=== PATIENT | female | born 1950 | race Caucasian/White ===

== ENCOUNTER 2019-10-28 15:07 | Outpatient (CLI) | payer MEDICARE, SELFPAY ==
--- NOTE | ~2019-10-28 | US_ITS ---
EXAMINATION: US venous doppler [facility] EXAM DATE: 10/28/2019 15:46 INDICATION: Left leg swelling. TECHNIQUE: Multiple grayscale, color flow and Doppler images of the left lower extremity deep venous system were obtained and reviewed. There is no prior study for comparison. FINDINGS: The left common femoral, femoral and profunda veins demonstrate normal color flow, respirat ory variation, augmentation and compressibility. Compressibility, color flow confirmed within the le ft popliteal, posterior tibial, peroneal, and greater saphenous veins. IMPRESSION: 1. No left lower extremity deep venous thrombosis. Reviewed, dictated and finalized at location A.
== END 2019-10-28 15:08 | disposition home or self-care (01) ==
PROVIDERS: PCP Family Medicine; Visit Provider Physician Assistant
DX: R60.9 Edema, unspecified (principal)
CPT/HCPCS: 93971

== ENCOUNTER 2020-09-11 09:39 | Outpatient (CLI) | payer MEDICARE, SELFPAY ==
--- NOTE | ~2020-09-11 | XR_ITS ---
XR hip RT min 2V DATE: 09/11/2020 10:39 INDICATION: Right hip pain TECHNIQUE: AP, lateral and crosstable lateral views of right hip COMPARISON: None FINDINGS: There is osteopenia. Normal alignment at the pubic symphysis and right sacroiliac joint. There is prominent right hip joint space narrowing and prominent spurring of the right femoral head c onsistent with prominent right hip osteoarthritis. No fracture, dislocation, avascular necrosis or bone destruction is detected. IMPRESSION: Moderately severe right hip osteoarthritis Reviewed, dictated and finalized at location A.
--- NOTE | ~2020-09-11 | XR_ITS ---
XR lumbar spine min 4V DATE: 09/11/2020 10:38 INDICATION: Back pain radiating to right lower extremity TECHNIQUE: AP, bilateral oblique, lateral and coned lateral lumbosacral views COMPARISON: 11/12/2016 lumbar spine 07/02/2018 MR lumbar spine FINDINGS: Diffuse osteopenia. There is levoscoliosis of the thoracolumbar spine, with compensatory dextroscoliosis of the lower lum bar spine. There is moderately severe degenerative disc disease at L1-2, L2-3 and L3-4 and severe degenerative d isc disease at L4-5 and L5-S1. There is minimal grade 1 anterolisthesis at L3-4 associated with degenerative changes noted in the mi d and lower lumbar/lumbosacral area. No fracture or bone destruction is evident. The included lower thoracic and lumbar pedicles are intac t. No spondylolysis is evident. The sacroiliac joints are intact. There is abdominal aortic and iliac artery calcification, without apparent aneurysm. IMPRESSION: Moderately severe to severe degenerative disc disease of the lumbar spine Reviewed, dictated and finalized at location A.
[2020-09-11 10:17] LABS: Basophils Percent Auto 0.5 % (0.2-1.2); Eosinophils Absolute Auto 0.2 K/mm3 (0-0.3); Eosinophils Percent Auto 2.4 % (0-4.4); Hematocrit 42.4 % (37.0-47.0); Hemoglobin 13.1 g/dL (12.0-15.0); Immature Granulocyte Absolute 0.03 K/mm3 (0.00-0.031); Immature Granulocyte Percent A 0.4 % (0-0.5); Lymphocytes Absolute Auto 1.34 K/mm3 (0.9-3.2); Lymphocytes Percent Auto 15.9 % (18.3-44.2); Mean Corpuscular HGB Conc 30.9 g/dl (32-36); Mean Corpuscular Hemoglobin 26.7 pg (26-34); Mean Corpuscular Volume 86.4 fl (80-100); Mean Platelet Volume 9.7 fl (7.4-10.4); Monocytes Absolute Auto 0.6 K/mm3 (0.1-0.6); Monocytes Percent Auto 7.2 % (2.6-8.5); Neutrophils Absolute Auto 6.2 K/mm3 (1.3-6.7); Neutrophils Percent Auto 73.6 % (45.5-73.1); Platelet Count Result 176 k/mm3 (150-375); Red Blood Count 4.91 M/mm3 (4.2-5.4); Red Cell Distribution Width 14.3 % (11.5-14.5); White Blood Count 8.4 K/mm3 (4.5-10.0)
[2020-09-11 10:29] LABS: Alanine Aminotransferase 19 U/L (4-35); Albumin Level 4.2 g/dL (3.5-5.1); Alkaline Phosphatase 71 U/L (38-126); Anion Gap 8 mmol/L (8-16); Aspartate Amino Transferase 23 U/L (14-36); Bilirubin,Total 0.2 mg/dL (0.2-1.3); Blood Urea Nitrogen 15 mg/dL (7-17); Calcium 9.8 mg/dL (8.4-10.2); Carbon Dioxide 28 mmol/L (22-30); Chloride 108 mmol/L (98-107); Cholesterol 173 mg/dL (0-200); Estimated Glomerular Filt Rate > 60; Glucose 103 mg/dL (65-105); HDL Direct 40 mg/dL; Potassium 4.2 mmol/L (3.4-5.0); Sodium 144 mmol/L (137-145); Triglycerides 128 mg/dL (<150)
[2020-09-11 10:41] LABS: LDL Cholesterol Direct 87 mg/dL
[2020-09-11 11:39] LABS: Hepatitis C Virus Antibody Negative (Negative)
== END 2020-09-11 09:40 | disposition home or self-care (01) ==
PROVIDERS: PCP Family Medicine; Referring Provider Physician Assistant; Visit Provider Family Medicine
DX: M54.16 Radiculopathy, lumbar region (principal); E78.5 Hyperlipidemia, unspecified; E66.9 Obesity, unspecified; E56.9 Vitamin deficiency, unspecified; Z11.59 Encounter for screening for other viral diseases; M16.11 Unilateral primary osteoarthritis, right hip; M51.36 Other intervertebral disc degeneration, lumbar region
CPT/HCPCS: 36415; 72110; 73502; 80053; 80061; 85025; 86803

== ENCOUNTER → 2021-08-15 14:31 | Outpatient (CLI) | payer MEDICARE, SELFPAY ==
--- NOTE | ~2021-08-15 | MR_ITS ---
EXAMINATION: MR hip RT wo con DATE: 08/15/2021 15:35 INDICATION: Right hip pain TECHNIQUE: Magnetic resonance imaging (MRI) of the right hip was performed without intravenous contr ast. Sequences included full-field axial PD-weighted FS FSE and T1-weighted FSE, coronal of the pelvi s with PD-weighted FS FSE, T2-weighted FSE and T1-weighted FSE, small field of view of the right hip with axial PD-weighted FS FSE, sagittal PD-weighted FS FSE, coronal PD-weighted FS FSE and coronal T2 weighted FSE. Additional radial T1-weighted FGR oriented orthogonal to the acetabular rim were obt ained for evaluation of the labrum. COMPARISON: Right hip radiographs dated 09/11/2020 FINDINGS: Bones/labrum/cartilage: Alignment is normal. No fracture, avascular necrosis or pathologic marrow replacing process. Moderat e to severe right hip osteoarthritis with axial predominant nonuniform joint space narrowing with the re is full/near full-thickness cartilage loss with subchondral cystic changes at the central aspect o f the acetabulum and along the superior to the superomedial aspect of the right femoral head. There i s diffuse degenerative tearing of the right acetabular labrum. Moderate osteoarthritis at the left hi p likely also with degenerative tearing of the left acetabular labrum although the latter is not diag nostically evaluated on the larger field of view images. Prominent marginal osteophytes about the perla ateral femoral heads. Bone island at the left posterior iliac spine. Mild lumbar dextrocurvature with severe spondylosis. Fluid: Asymmetric small left hip joint effusion. No bursitis or other abnormal fluid collections. Soft tissues: Diffuse mild fatty atrophy of the musculature of the pelvis and proximal thighs. No asymmetric muscle atrophy or abnormal muscle signal. The iliopsoas, gluteal and proximal hamstring tendons are normal. Small nabothian cyst at the cervix. Limited evaluation of visceral organs of the pelvis is otherwise unremarkable. No pathologically enlarged pelvic/inguinal lymphadenopathy. IMPRESSION: 1. Moderate to severe right hip osteoarthritis with diffuse labral degeneration. 2. Moderate left hip osteoarthritis with small left hip joint effusion and likely also with labral de generation but which is not diagnostically evaluated on the larger field of view images. 3. Mild lumbar dextrocurvature with severe spondylosis. Reviewed, dictated and finalized at location B. IMPRESSION: 1. Moderate to severe right hip osteoarthritis with diffuse labral degeneration . 2. Moderate left hip osteoarthritis with small left hip joint effusion and like ly also with labral degeneration but which is not diagnostically evaluated on t he larger field of view images. 3. Mild lumbar dextrocurvature with severe spondylosis.
== END ==
PROVIDERS: PCP Family Medicine; Visit Provider Family Medicine
DX: M47.816 Spondylosis without myelopathy or radiculopathy, lumbar region (principal); M16.12 Unilateral primary osteoarthritis, left hip; M25.452 Effusion, left hip; M16.11 Unilateral primary osteoarthritis, right hip
CPT/HCPCS: 73721

== ENCOUNTER → 2021-09-20 13:02 | Outpatient (CLI) | payer MEDICARE, SELFPAY ==
--- NOTE | ~2021-09-20 | MR_ITS ---
EXAMINATION: MR lumbar spine wo con DATE: 09/20/2021 13:32 INDICATION: Lumbago and radiculopathy TECHNIQUE: Magnetic resonance imaging (MRI) of the lumbar spine was performed without intravenous con trast. Sequences included sagittal T2-weighted FSE, sagittal T2-weighted FS FSE, sagittal T1-weighted FSE, and axial T2-weighted FSE. COMPARISON: None FINDINGS: 15 degree lumbar dextroscoliosis. Sagittal alignment is normal. Schmorl's nodes along multiple endpla sohan in the lumbar and lower thoracic spine. Minimal left-sided vertebral body height loss at L3 and L 4 resulting from degenerative remodeling of the endplates with mild to severe left-sided predominant disc height loss at L3-L4 and moderate to severe left-sided predominant disc height loss at L4-L5. Mo derate to severe right-sided predominant disc height loss at L5-S1. Mild to moderate right-sided pred ominant disc height loss at L1-L2. Mild disc height loss at T10-T11 and T11-T12. Minimal fibrovascula r degenerative endplate changes at a few levels. T1 hyperintense hemangiomas at T12 and L4. Small scl erotic bone island with absent signal at L5. Marrow signal is otherwise normal. The conus medullaris terminates at L2. There is normal signal in the caudal spinal cord. Paravertebral soft tissues are un remarkable. The following disc levels are specifically discussed: T12-L1: The disc does not extend beyond the endplate margin. There is mild left and moderate right fa cet joint osteoarthritis. There is no neural foraminal stenosis. There is no central canal stenosis. L1-L2: Disc is bulging. There is mild right and moderate left facet joint osteoarthritis. There is mo derate left and mild to moderate right neural foraminal stenosis. There is mild central canal stenosi s. L2-L3: Disc is bulging. There is moderate bilateral facet joint osteoarthritis. There is moderate perla ateral neural foraminal stenosis. There is mild central canal stenosis. L3-L4: Disc is bulging. There is hypertrophy of the ligamentum flavum. There is moderate right and se mariano left facet joint osteoarthritis. There is moderate bilateral neural foraminal stenosis. There is mild central canal stenosis. L4-L5: Disc is bulging. There is mild right and severe left facet joint osteoarthritis. There is mild right and moderate left neural foraminal stenosis. There is mild central canal stenosis. L5-S1: Disc is bulging. There is hypertrophy of the ligamentum flavum. There is moderate left and se mariano right facet joint osteoarthritis. There is mild to moderate left and moderate right neural hermilo inal stenosis. There is mild central canal stenosis. IMPRESSION: 1. Lumbar dextroscoliosis with progression of severe lumbar spondylosis. Reviewed, dictated and finalized at location A.
== END ==
PROVIDERS: PCP Family Medicine; Visit Provider Nurse Practitioner Family
DX: M47.26 Other spondylosis with radiculopathy, lumbar region (principal)
CPT/HCPCS: 72148

== ENCOUNTER → 2021-10-01 11:46 | Outpatient (CLI) | payer MEDICARE, SELFPAY ==
--- NOTE | ~2021-10-01 | CT_ITS ---
EXAMINATION: CT lung screening DATE: 10/01/2021 12:01 INDICATION: Personal history of tobacco dependence. Lung cancer screening. TECHNIQUE: Computed tomography (CT) of the chest was performed without intravenous contrast. The dose -length product was 388.96 mGy-cm. Automated exposure control and iterative reconstruction technique were employed. COMPARISON: CT dated 10/29/2018 FINDINGS: There is enlargement of some solid left upper lobe nodule with 7 mm solid component and 13 mm complete diameter. This compares with 7 mm on prior examination. Heart size normal. Small hiatal h ernia. No significant pleural or pericardial effusion. There is atherosclerosis of the aorta and kierra nary arteries. Small hiatal hernia. No significant pleural or pericardial effusion. There is enlarged precarinal lymph node measuring 1.4 cm. The upper abdomen is unremarkable. There are patchy groundgl ass opacities of the lower lobes. There is a 4 mm left lower lobe nodule, image 101. There is a 3 mm right upper lobe nodule adjacent to the fissure, image 55, new since prior examination. There is a 3- 4 mm nodule in the left upper lobe/lingula, image 70. No focal consolidation. No endobronchial lesion s. IMPRESSION: 1. Lung Rads category 4A: Recommend follow-up low dose CT chest in 3 months or PET/CT scan. Reviewed, dictated and finalized at location A.
== END ==
PROVIDERS: PCP Family Medicine; Visit Provider Nurse Practitioner Family
DX: Z12.2 Encounter for screening for malignant neoplasm of respiratory organs (principal); Z87.891 Personal history of nicotine dependence; R91.8 Other nonspecific abnormal finding of lung field
CPT/HCPCS: 71271

== ENCOUNTER → 2022-01-02 11:53 | Outpatient (CLI) | payer MEDICARE, SELFPAY ==
--- NOTE | ~2022-01-02 | CT_ITS ---
EXAMINATION: CT diagnostic chest wo con DATE: 01/02/2022 12:05 INDICATION: Lung nodule TECHNIQUE: Computed tomography (CT) of the chest was performed without intravenous contrast. The dose -length product (DLP) was 404.79 mGy-cm. Automated exposure control and iterative reconstruction tech [employer] were employed. COMPARISON: 10/01/2021 FINDINGS: There is mild emphysema. There is an approximately 1.3 x 0.6 cm nodule in the left upper lo be on image 34 which is not significantly changed since the comparison examination. According to Lung -RADS guidelines, this is given a category 2 assessment. There is a stable 3 mm nodule of the right u pper lobe. There is a stable 3 mm nodule of the left lower lobe. There is mild atelectasis. No pleura l effusion or pneumothorax. No pathologically enlarged thoracic lymph nodes are identified. The heart size is normal. Calcified coronary artery atherosclerosis is noted. There is lipomatous hypertrophy of the interatrial septum. There is cortical scarring of the right kidney. There is moderate lumbar s pondylosis. There is a small sliding hiatal hernia. IMPRESSION: 1. Lung-RADS category 2: Benign appearance or behavior. Continue annual screening with noncontrast lo w-dose chest CT in 12 months. Reviewed, dictated and finalized at location A. IMPRESSION: 1. Lung-RADS category 2: Benign appearance or behavior. Continue annual screeni ng with noncontrast low-dose chest CT in 12 months.
== END ==
PROVIDERS: PCP Family Medicine; Visit Provider Nurse Practitioner Family
DX: R91.1 Solitary pulmonary nodule (principal); I25.10 Atherosclerotic heart disease of native coronary artery without angina pectoris; M47.816 Spondylosis without myelopathy or radiculopathy, lumbar region; K44.9 Diaphragmatic hernia without obstruction or gangrene
CPT/HCPCS: 71250

== ENCOUNTER 2022-07-08 12:31 | Outpatient (CLI) | payer MEDICARE, SELFPAY ==
--- NOTE | ~2022-07-08 | CT_ITS ---
CT Scan of the Chest without Contrast: Clinical Indication: Lung nodule Technique: Contiguous sections were acquired throughout the chest without intravenous contrast. Dose reduction technique was used on this scan by utilizing automated exposure control and iterative recon struction technique. The dose-length product (DLP) was 422.58 mGy-cm. COMPARISON: 01/02/2022, 10/29/2018 Findings: There is no evidence of any significant mediastinal, hilar or axillary lymphadenopathy. The mediastin al soft tissues appear normal. There is no evidence of pleural or pericardial effusion. Focal groundglass opacity right lung apex is similar to prior exam (axial image 24). Subcentimeter finney bpleural nodules at the anterior right lung base probably are similar to prior exam. Increasing nodul e at the left lung apex, now measuring up to 1 cm in maximum diameter (axial image 36). Stable subple ural nodule at the lingula. Images through the upper abdomen reveal no abnormalities. Impression: 1 cm left apical pulmonary nodule slowly increasing over time, suspicious for low-grade neoplasm. 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 Additional small pulmonary nodules are stable from prior exams. Reviewed, dictated and finalized at location . Impression: 1 cm left apical pulmonary nodule slowly increasing over time, suspicious for l ow-grade neoplasm. Consider resection or attempted tissue sampling. Additional small pulmonary nodules are stable from prior exams.
== END 2022-07-08 12:32 | disposition home or self-care (01) ==
PROVIDERS: PCP Family Medicine; Visit Provider Nurse Practitioner Family
DX: R91.1 Solitary pulmonary nodule (principal)
CPT/HCPCS: 71250

== ENCOUNTER 2022-07-23 08:57 | Outpatient (CLI) | payer MEDICARE, SELFPAY ==
[2022-07-15 11:51] VITALS: BMI 43.7
--- NOTE | 2022-07-15 11:52 | PC.NURSE ---
Pre Radiology instructions Report to the outpatient [facility] on date _07/23/22____ at time __9:00AM for procedure Time: _11:00AM___ YOU MAY BE MONITORED AT HOSPITAL FOR UP TO 4 HOURS AFTER YOUR PROCEDURE. A visitor will be allowed to accompany the patient into the hospital. You and your visitor will be asked to self-screen and do not enter if you have any COVID symptoms. A mask is OPTIONAL within the hospital. Patients are to have no food or drink 6 hours prior to procedure time Driving will be restricted after the procedure, you must have a person to drive you home. Labs will be drawn in preop area and once reviewed, you will be taken to radiology area for procedure. When the procedure is completed, you will be taken to outpatient where you will be monitored for several hours. You may have one visitor in this area. Other than holding anti-coagulants, patient may take other medication(s) as scheduled. Prior to your appointment date patients are instructed to hold anti-coagulants after discussing with ordering provider to stop. If unable to discontinue anti-coagulants please notify radiologist. ? No aspirin or warfarin (Coumadin) for 7 days prior to the procedure. ? No clopidogrel (Plavix), ticagrelor (Brilinta), prasugrel (Effient) or dabigatran (Pradaxa) for 5 days prior to the procedure. ? No rivaroxaban (Xarelto), apixaban (Eliquis), dipyridamole (Aggrenox or Persantine) or cilostazol (Pletal) for 2 days prior to the procedure. Medications to discontinue per physician: __NONE Date to take last dose: Please leave all valuables, including medications, at home the day of procedure. The hospital will not accept responsibility for valuables. Wear comfortable, loose fitting clothing.? Follow any additional instructions given to you from ordering provider. Telephone instructions given to __PATIENT and asked if any additional questions and then verbalized understanding. Patient advised to call scheduling provider office or registration scheduling [phone] if any additional questions.
[2022-07-23] VITALS (9 sets, daily range): BP systolic 109–150; BP diastolic 55–72; PULSE 50–70; RESP 14–16; TEMP 37.3; O2SAT 95–100
--- NOTE | ~2022-07-23 | XR_ITS ---
EXAMINATION: XR chest 1V DATE: 07/23/2022 11:46 INDICATION: Left lung nodule status post previous biopsy. TECHNIQUE: A single frontal view of the chest was obtained. COMPARISON: Chest CT 07/08/2022 FINDINGS: There is a mass in left lung upper lobe. No pleural effusion. There is a small left apical pneumothorax. The heart size is normal. IMPRESSION: 1. Mass in left lung upper lobe, consistent with postbiopsy hemorrhage. 2. Small left apical pneumothorax. Reviewed, dictated and finalized at location A.
--- NOTE | ~2022-07-23 | XR_ITS ---
EXAMINATION: XR chest 1V portable DATE: 07/23/2022 12:47 INDICATION: Left lung nodule status post percutaneous biopsy. TECHNIQUE: A single frontal view of the chest was obtained. COMPARISON: Chest single view at 11:45 AM FINDINGS: There is a nodule in left upper lobe. No pleural effusion or pneumothorax. The heart size i s normal. IMPRESSION: 1. Nodule in left lung upper lobe, consistent with postbiopsy hemorrhage. Reviewed, dictated and finalized at location A.
--- NOTE | ~2022-07-23 | XR_ITS ---
EXAMINATION: XR chest 1V portable DATE: 07/23/2022 15:53 INDICATION: Left lung nodule status post percutaneous biopsy. TECHNIQUE: A single frontal view of the chest was obtained on 2 radiographs. COMPARISON: Chest single view at 12:38 PM FINDINGS: There is a nodule in left upper lobe. No pleural effusion or pneumothorax. The heart size i s normal. IMPRESSION: 1. Nodule in left upper lobe, consistent with postbiopsy hemorrhage. Reviewed, dictated and finalized at location A.
--- NOTE | ~2022-07-23 | CT_ITS ---
EXAMINATION: CT biopsy lung w/imaging DATE: 07/23/2022 11:47 INDICATION: Left lung nodule. TECHNIQUE: The procedure including the risks, benefits, and alternatives and possibility of chest tub e placement were discussed with the patient. Risks discussed included infection, hemorrhage, approxim ately 1/3 risk of pneumothorax, approximately 1/10 risk of pneumothorax severe enough to warrant ches t tube placement, and rarely . The patient understood the risks and agreed to proceed. The patie nt was placed supine. The skin overlying the left chest was prepped and draped in sterile fashion. Anesthetic was administered with 1% lidocaine subcutaneously. A 19 gauge outer needle was advanced u nder CT guidance to the lesion of interest. A 20 gauge core biopsy needle was then used to obtain one core biopsy specimen. The needle was removed and the entry site was cleaned and dressed. The mA was adjusted according to patient size. Iterative reconstruction technique was employed. The dose-length product was 201.35 mGy-cm. The patient experienced hemoptysis and was placed in the left lateral decu bitus position. FINDINGS: CT images demonstrate the outer needle tip adjacent to a 13 mm nodule in left upper lobe. IMPRESSION: 1. CT-guided core needle biopsy of a 13 mm nodule in left lung upper lobe. Reviewed, dictated and finalized at location A.
[2022-07-23 09:42] LABS: Mean Platelet Volume 9.1 fl (7.4-10.4); Platelet Count Result 164 k/mm3 (150-375)
[2022-07-23 09:55] LABS: Prothrombin Time 13.3 Seconds (11.1-14.7)
--- NOTE | 2022-07-23 14:53 | SUR.PHASEII ---
[id number] dr garcia called and asked for updated on patient, doing well, last chest xray is ok, patient ok for discharge
== END 2022-07-23 14:54 | disposition home or self-care (01) ==
PROVIDERS: PCP Family Medicine; Referring Provider Nurse Practitioner Family; Visit Provider Radiology Diagnostic Radiology
PROC: BB24ZZZ Computerized Tomography (CT Scan) of Bilateral Lungs (ICD-10-PCS; CPT 32408; principal; 2022-07-23 11:00)
DX: R91.1 Solitary pulmonary nodule (principal)
CPT/HCPCS: 32408; 36415; 71045; 85049; 85610; 88305

== ENCOUNTER 2022-11-05 12:31 | Outpatient (CLI) | payer MEDICARE, SELFPAY ==
--- NOTE | ~2022-11-05 | CT_ITS ---
EXAMINATION: CT diagnostic chest wo con DATE: 11/05/2022 13:05 INDICATION: Lung nodule TECHNIQUE: Computed tomography (CT) of the chest was performed without intravenous contrast. The dose -length product (DLP) was 420.53 mGy-cm. Automated exposure control and iterative reconstruction tech [employer] were employed. COMPARISON: 10/01/2021, 01/02/2022, 07/08/2022, 07/23/2022 FINDINGS: There is an approximately 1.4 x 0.7 cm nodule of the left upper lobe on image 36 without si gnificant change since comparison examinations. There are stable 3 mm nodules of the right upper lobe and left lower lobe. No new pulmonary nodules are identified. No pathologically enlarged thoracic ly mph nodes are identified. The heart size is normal. No pleural effusion or pneumothorax. There is aliya cified coronary artery atherosclerosis. Mild dependent atelectasis is noted. Subendocardial fat depos ition in the left ventricular apex and intraventricular septum is consistent with prior myocardial in farction. Again noted is lipomatous hypertrophy of the interatrial septum. There is moderate thoracic spondylosis. IMPRESSION: 1. Stable lung nodules. Annual lung cancer screening is recommended. Reviewed, dictated and finalized at location L.
== END 2022-11-05 12:32 | disposition home or self-care (01) ==
PROVIDERS: PCP Family Medicine; Visit Provider Nurse Practitioner Family
DX: R91.1 Solitary pulmonary nodule (principal); R91.8 Other nonspecific abnormal finding of lung field
CPT/HCPCS: 71250

== ENCOUNTER 2023-02-12 10:00 | Outpatient (RCR) | payer MEDICARE, SELFPAY ==
--- NOTE | 2023-01-09 11:23 | PTOPEVAL1 ---
Assessment and note entered by Rajiv Rios Evaluation Information Assessment Status Evaluation Diagnosis lumbar radiculopathy, low back pain Onset 12/16/22 Subjective Information Pt. reports she has experienced low back pain for years. She reports that her pain has gotten progressively worse over the past year. She describes pain in the middle of the low back and into the hips around the described greater trochanter. She states that pain is increased with being in one position for a long period of time. She states that she can only stand for about 15 minutes before having to sit. Pt. 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 She states that she has also noticed a decline in her balance and was been using a rolling walker around the home. She is by herself at home. She states that she avoid yard work due to pain and balance issues. She report no falls in the past year, but recalls numerous loses of balance. She reports that her goal is to reduce her back pain and improve her balance. Reported Pain Level Pain Score 2: Self Report Assessment PT Clinical Summary Pt. is a 72 year old female who enters the clinic with low back pain. Pt. presents with moderate fall risk, impaired gait, impaired l.e. strength, impaired postural awareness and pain on this date. Continued skilled PT is indicated in order to address these areas to allow the pt. to be able to complete all IADL's with improved comfort and efficiency. Plan of Care Interventions Electrical Stimulation,Gait Training,Hot Pack/Cold Pack,Manual Therapy,Mechanical Traction,Neuro Re- education,Patient/Caregiver Educati,Therapeutic Activities,Therapeutic Exercise PT Services Indicated Yes Treatment Frequency and 2x/week x 10 visits Duration These treatments will address the objective and functional deficits as defined above. The patient will be advanced safely and appropriately in order for the patient to progress towards his/her prior level of function. Additional exercises will be introduced and as well as a comprehensive home exercise program upon discharge, if needed, ?to ensure carryover of functional gains achieved in the clinic. This treatment plan has been reviewed and agreement upon by the patient.
--- NOTE | 2023-01-09 11:23 | OPREHPOC ---
Outpatient Therapy Plan of Care This is a Multidisciplinary Plan of Care that may contain components documented by all disciplines (PT, OT, and ST.) PT Problem 1 PT Problem #1 Knowledge Deficit PT Goal 1 Goal Independent with a HEP focusing on core stability and l.e. strength Target Visit 2 PT Problem 2 PT Problem #2 Impaired Balance PT Goal 1 Goal Improve tinetti score to 24 or greater indicating low fall risk. Target Visit 10 PT Problem 3 PT Problem #3 Impaired Functional Mobil PT Goal 1 Goal Pt. will be able to safely reach to the floor to lift 10# object with proper mechanics x 5 reps PT Goal 2 Goal Pt. will demonstrate 20% improvement in her Modified Oswestry score indicating improved function. Target Visit 10 PT Problem 5 PT Problem #5 Pain PT Goal 1 Goal Pt. will report reduction in pain levels to 4/10 with long periods of standing. Target Visit 10
--- NOTE | 2023-02-12 10:48 | OPREHPOC ---
Outpatient Therapy Plan of Care This is a Multidisciplinary Plan of Care that may contain components documented by all disciplines (PT, OT, and ST.) PT Problem 1 PT Problem #1 Knowledge Deficit PT Goal 1 Goal Independent with a HEP focusing on core stability and l.e. strength Target Visit 2 Progress Met Comment 02-12-23 progress met goal- continue to progress education for aquatic exercises PT Problem 2 PT Problem #2 Impaired Balance PT Goal 1 Goal Improve tinetti score to 24 or greater indicating low fall risk. Target Visit 10 Progress Met Comment 02-12-23 progress met goal discontinue intervention PT Problem 3 PT Problem #3 Impaired Functional Mobility PT Goal 1 Goal Pt. will be able to safely reach to the floor to lift 10# object with proper mechanics x 5 reps Progress Met Comment 02-12-23 progress met goal NEW GOAL: 1* pt perform 45 minutes of aquatic exercises, to increase strength of trunk and hips PT Goal 2 Goal Pt. will demonstrate 20% improvement in her Modified Oswestry score indicating improved function. Target Visit 10 Progress Not Met Comment 02-12-23 progress goal not met, improved to 42% discontinue intervention PT Problem 5 PT Problem #5 Pain PT Goal 1 Goal Pt. will report reduction in pain levels to 4/10 with long periods of standing. Target Visit 10 Progress Not Met Comment 02-12-23 progress not met, continue towards goal
--- NOTE | 2023-02-12 10:48 | PTOPPROG ---
Assessment and note entered by Jocelyn Soto, PT Evaluation Information Assessment Status Progress Diagnosis lumbar radiculopathy, low back pain Onset 12/16/22 Subjective Information feel like doing better, but improvements will be care home and take time; was hard to find some exercises for home that do not cause more pain in hip and back; wants to try aquatic exercises, her friend likes them and she wants to go with her to [facility] to do exercises for more weight loss; has also been going to the chiropractor for back adjustments ; thinks that may be helping, but after last traction session and chiropractor, had more pain PAIN: range in the past week: 2-7/10 decrease pain with sitting, resting increase pain raking leaves, twisting reported tolerance with standing/walking 25 min 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 Compared to the initial evaluation: pain was 1-7/10 and now 2-7/10; reported standing/walking tolerance has increased from 15 to 25 minutes; Oswestry self assessment functional score from 50% to 42% limitation in activity level; Tinetti balance score from 24 to 26/28; education for home exercises, posture, pain management and body mechanics; The goals were partially met. Continue PT for aquatic therapy--education to pt for aquatic exercises for fitness/weight loss and decrease stress to spine, with the buoyancy effects of the water. Plan of Care Interventions Aquatic Therapy,Patient Education PT Services Indicated Yes Treatment Frequency and 1-2x/wk for 4 weeks= total of 4 visits Duration These treatments will address the objective and functional deficits as defined above. The patient will be advanced safely and appropriately in order for the patient to progress towards his/her prior level of function. Additional exercises will be introduced and as well as a comprehensive home exercise program upon discharge, if needed, ?to ensure carryover of functional gains achieved in the clinic. This treatment plan has been reviewed and agreement upon by the patient.
--- NOTE | 2023-02-24 15:30 | PCPTNOTE ---
Pt cancelled all remaining appointments becuase she had too much going on right now.
--- NOTE | 2023-02-27 10:02 | PTOPDC ---
Assessment and note entered by Jocelyn Soto, PT Discharge Information Assessment PT Clinical Summary PHYSICAL THERAPY DISCHARGE Rosa has received 10 PT sessions, from Jan 09 to Feb 12. She then called and canceled all of her remaining appointments, due to too much to to at this time. The goals were not addressed. Discharge PT per pt requrest. Plan of Care PT Services Indicated No
== END 2023-02-27 10:17 | disposition home or self-care (01) ==
LOC: ANHPT 10:00
PROVIDERS: PCP Family Medicine; Visit Provider Physician Assistant
DX: M54.16 Radiculopathy, lumbar region (principal)
CPT/HCPCS: 97012; 97014; 97110; 97140; 97161; 97530; G0283

== ENCOUNTER → 2023-05-14 13:07 | Outpatient (CLI) | payer MEDICARE, SELFPAY ==
--- NOTE | ~2023-05-14 | DEXA_ITS ---
Bone Density Report Name: KAREN MARSHALL Age: 72 Sex: Female Ethnicity: White Date of : 1950 Indication: postmenopausal; screening for osteoporosis; height loss; Referring Provider: RENITA MIR Study: Bone densitometry was performed. Exam Date: May 14, 2023 Accession number: [id number] Bone Density: Region BMD T-score Z-score Classification AP Spine (L1-L4) 1.157 1.0 3.3 Normal Femoral Neck (Left) 0.691 -1.4 0.6 Osteopenia Total Hip (Left) 0.899 -0.4 1.4 Normal Femoral Neck (Right) 0.665 -1.7 0.4 Osteopenia Total Hip (Right) 0.836 -0.9 0.8 Normal Total Hip Mean 0.868 -0.7 1.1 Normal World Health Organization criteria for BMD impression classify patients as: Normal (T-score at or above -1.0), Osteopenia (T-score between -1.0 and -2.5), or Osteoporosis (T-score at or below -2.5). 10-year Fracture Risk(1): Major Osteoporotic Fracture 9.7% Hip Fracture 1.7% Reported Risk Factors: [place] (), Neck BMD=0.665, BMI=43.4 (1) FRAX(R) Version 3.08. Fracture probability calculated for an untreated patient. Fracture probability may be lower if the patient has received treatment. Clinical Information Provided by Patient: Has used the following medications: Vitamin D, Calcium Patient maximum height was 67.5 Menopause Age: 47 No regular weight bearing exercise Does not regularly consume dairy products Drinks caffeinated beverages Onset of menses at age 13 Number of children 1 Impression: The patient has low bone mass, based on the Right Femoral Neck T-score. The patient has an estimated ten-year risk of hip fracture of 1.7% and an estimated ten-year risk of major fracture of 9.7%, based on the WHO FRAX algorithm. Discussion: BONE DENSITY IS LOW AT ONE OR MORE SKELETAL SITES. This patient's lowest T-score is low at one or more skeletal sites. It meets the World Health Organization's (WHO) criteria for ?low bone mass? (T-score between -1.0 and -2.5). The patient's 10-year risk of fracture as calculated by FRAX is less than the threshold where pharmacological therapy is recommended by the National Osteoporosis Foundation (NOF). However, all treatment decisions require clinical judgment and consideration of individual patient factors, including patient preferences, comorbidities, previous drug use, risk factors not captured in the FRAX model (e.g., frailty, falls, vitamin D deficiency, increased bone turnover, interval significant decline in bone density) and possible under or overestimation of fracture risk by FRAX. The patient should follow a healthful lifestyle (good nutrition with adequate calcium and vitamin D, and appropriate weight-bearing exercise). Follow-Up: Consider repeating this study in 2 to 3 years to reassess this patient's status, or sooner if there is some new cl
== END ==
PROVIDERS: PCP Physician Assistant; Visit Provider Physician Assistant
DX: M85.89 Other specified disorders of bone density and structure, multiple sites (principal); Z78.0 Asymptomatic menopausal state
CPT/HCPCS: 77080

== ENCOUNTER 2023-11-11 09:17 | Outpatient (CLI) | payer MEDICARE, SELFPAY ==
--- NOTE | ~2023-11-11 | CT_ITS ---
EXAMINATION:CT diagnostic chest wo con DATE: 11/11/2023 09:53 INDICATION: Solitary pulmonary nodule. TECHNIQUE: Computed tomography (CT) of the chest was performed without intravenous contrast. Automate d exposure control and iterative reconstruction technique were employed. The dose-length product (DLP ) was 277.78 mGy-cm. COMPARISON: Chest CT 11/05/2022 FINDINGS: There is mild emphysema. There is mild atelectasis bilaterally. There is a 13 mm nodule in left upper lobe, stable from 11/05/2022. There is a 3 mm nodule in right upper lobe, likely benign. No pleural effusion. The heart size is normal. There are coronary artery calcifications. No pericardial effusion. There is moderate thoracic spondylosis. IMPRESSION: 1. 13 mm left upper lobe pulmonary nodule, stable from 11/05/2022, likely benign. Continue annual scre ening with noncontrast low-dose chest CT in 12 months. Reviewed, dictated and finalized at location A. IMPRESSION: 1. 13 mm left upper lobe pulmonary nodule, stable from 11/05/2022, likely benign . Continue annual screening with noncontrast low-dose chest CT in 12 months.
== END 2023-11-11 09:18 ==
LOC: MICIMG 09:17
PROVIDERS: PCP Family Medicine; Visit Provider Nurse Practitioner Family
DX: R91.1 Solitary pulmonary nodule (principal)
CPT/HCPCS: 71250

== ENCOUNTER 2023-11-11 09:19 | Outpatient (CLI) | payer MEDICARE, SELFPAY ==
--- NOTE | ~2023-11-11 | XR_ITS ---
EXAMINATION: XR hip RT 2V w AP pelvis DATE: 11/11/2023 09:35 INDICATION: Right hip pain. TECHNIQUE: An anteroposterior view of the pelvis and 2 views of right hip were obtained. COMPARISON: Right hip radiographs 09/11/2020 FINDINGS: There is lumbar dextrocurvature and severe spondylosis. No fracture. There is severe osteoa rthritis of the hips. IMPRESSION: 1. Severe osteoarthritis of the hips. Reviewed, dictated and finalized at location A.
== END 2023-11-11 09:20 ==
LOC: MICIMG 09:20
PROVIDERS: PCP Family Medicine; Visit Provider Family Medicine
DX: M25.551 Pain in right hip (principal); M16.0 Bilateral primary osteoarthritis of hip
CPT/HCPCS: 73502

== ENCOUNTER 2023-12-05 12:37 | Outpatient (CLI) | payer MEDICARE, SELFPAY ==
--- NOTE | ~2023-12-05 | MR_ITS ---
EXAMINATION: MR lumbar spine wo con DATE: 12/05/2023 13:39 INDICATION: Lumbago TECHNIQUE: Magnetic resonance imaging (MRI) of the lumbar spine was performed without intravenous con trast. Sequences included sagittal T2-weighted FSE, sagittal T2-weighted FS FSE, sagittal T1-weighted FSE, and axial T2-weighted FSE. COMPARISON: 09/20/2021 FINDINGS: 1019 degrees lumbar dextroscoliosis. Sagittal alignment is normal. Consider a few Schmorl's nodes in the lumbar and lower thoracic spine. Minimal left-sided vertebral body height loss at L3 and L4 resul ting from degenerative endplate remodeling with associated severe left-sided disc height loss at L3-L 4 and L4-L5. Minimal right-sided vertebral body height loss at L5 also secondary to degenerative endp late remodeling with severe right-sided disc height loss at L5-S1. Remaining vertebral body heights a re normal. Interval progression of mild left and now severe right-sided disc height loss at L1-L2. Mi ld disc height loss at T1 T12 and L2-L3. There are fibrovascular degenerative endplate changes associ ated with the regions of severe disc height loss. T1 hyperintense hemangiomas at T12, L4 and L5. The conus medullaris terminates at L1-L2. There is normal signal in the caudal spinal cord. Paravertebral soft tissues are unremarkable. The following disc levels are specifically discussed: T12-L1: The disc does not extend beyond the endplate margin. There is mild left and and moderate to s evere right facet joint osteoarthritis. There is no neural foraminal stenosis. There is no central ca nal stenosis. L1-L2: Disc is bulging. There is mild right and moderate left facet joint osteoarthritis. There is mo derate left and mild to moderate right neural foraminal stenosis. There is mild central canal stenosi s. L2-L3: Disc is bulging. There is moderate bilateral facet joint osteoarthritis. There is bilateral ne ural foraminal stenosis. There is mild central canal stenosis. L3-L4: Disc is bulging. There is hypertrophy of the ligamentum flavum. There is moderate right and se mariano left facet joint osteoarthritis. There is moderate bilateral neural foraminal stenosis. There is mild central canal stenosis. L4-L5: Disc is bulging. There is mild right and severe left facet joint osteoarthritis. There is mild right and moderate left neural foraminal stenosis. There is mild central canal stenosis. L5-S1: Disc is bulging. There is hypertrophy of the ligamentum flavum. There is moderate left and sev ere right facet joint osteoarthritis. There is mild left and moderate right neural foraminal stenosis . There is mild central canal stenosis. IMPRESSION: 1. Lumbar dextroscoliosis with minimal progression in severe lumbar spondylosis. Reviewed, dictated and finalized at location B. IMPRESSION: 1. Lumbar dextroscoliosis with minimal progression in severe lumbar spondylosis .
== END 2023-12-05 12:38 | disposition home or self-care (01) ==
LOC: MICIMG 12:38
PROVIDERS: PCP Family Medicine; Visit Provider Nurse Practitioner Family
DX: M41.86 Other forms of scoliosis, lumbar region (principal); M43.06 Spondylolysis, lumbar region
CPT/HCPCS: 72148

== ENCOUNTER 2024-10-21 09:09 | Outpatient (CLI) | payer MEDICARE, SELFPAY ==
--- NOTE | ~2024-10-21 | NM_ITS ---
EXAMINATION: NM eduarda stress w perfusion DATE: 10/21/2024 10:54 INDICATION: Abnormal electrocardiogram TECHNIQUE: Rest images were obtained following intravenous administration of 10 mCi Tc99m tetrofosmin (Myoview). The patient was infused intravenously with Lexiscan (Regadenoson). Then, 33 mCi Tc99m tet rofosmin (Myoview) was administered intravenously, and stress images were obtained. Data was reconstr ucted into short axis and horizontal and vertical long axis SPECT images. Gated SPECT images were als o obtained. COMPARISON: None. FINDINGS: There is no definite reversible or fixed perfusion abnormality to suggest ischemia or infar ction. There is normal left ventricular chamber size, wall motion and ejection fraction. Left ventr icular ejection fraction measures >70%. IMPRESSION: 1. Normal myocardial perfusion at rest and during stress. 2. Left ventricular ejection fraction measuring >70%. Reviewed, dictated and finalized at location A.
--- NOTE | 2024-10-21 09:13 | EST_ITS ---
Patient Info Name: Rosa Newell Age: 74 years : 1950 Gender: Female Ht: 65 in Wt: 229 lbs BSA: 2.23 m2 Exam Date: 10/21/2024 9:13 AM Patient Status: O Admit Date: 10/21/2024 Exam Type: CA stress eduarda w NM A regadenoson stress test was performed. Staff Referring Physician: Fatou Mcgee MD Attending Provider: Fatou Mcgee MD Exercise Technologist: Mally Grey Exercise Physician: Chase Tavarez DO Summary 1. 1. Negative lexiscan stress test for ischemic ST changes by ECG criteria. 2. 2. Baseline hypertension. 3. 3. Nuclear scan to follow and will be reported separately. Please correlate with it. 4. 4. Patient informed of the above results. Protocol: Lexiscan Stress ECG Details Stage: REST Duration (min): 1 min : 5 sec HR (bpm): 57 SBP (mmHg): 147 DBP (mmHg): 74 Stage: REST Duration (min): 3 min : 54 sec HR (bpm): 54 SBP (mmHg): 147 DBP (mmHg): 74 Stage: STAGE 1 Duration (min): 1 min : 0 sec HR (bpm): 87 SBP (mmHg): 157 DBP (mmHg): 80 Stage: RECOVERY Duration (min): 1 min : 0 sec HR (bpm): 89 SBP (mmHg): 224 DBP (mmHg): 81 Stage: RECOVERY Duration (min): 2 min : 0 sec HR (bpm): 83 SBP (mmHg): 224 DBP (mmHg): 81 Stage: RECOVERY Duration (min): 3 min : 0 sec HR (bpm): 77 SBP (mmHg): 224 DBP (mmHg): 81 Stage: RECOVERY Duration (min): 4 min : 0 sec HR (bpm): 79 SBP (mmHg): 194 DBP (mmHg): 80 Stage: RECOVERY Duration (min): 5 min : 0 sec HR (bpm): 76 SBP (mmHg): 155 DBP (mmHg): 85 Stage: RECOVERY Duration (min): 5 min : 8 sec HR (bpm): 77 SBP (mmHg): 155 DBP (mmHg): 85 Rest HR: 54 bpm Peak HR: 93 bpm Rest Sys BP: 147 mmHg Peak Sys BP: 224 mmHg Max Pred HR: 145 bpm % Max Pred HR: 64 % Target HR: 123 bpm Max RPP: 20,832 bpm*mmHg Termination Reason: Completed protocol Cardiac Symptoms: Shortness of breath Total Time: 1 min : 0 sec Rest Hilliard BP: 74 mmHg Peak Hilliard BP: 81 mmHg Total Dose: 0.4 mg Resting ECG Sinus bradycardia, IRBBB. Stress ECG No ST changes. Arrhythmias None. Report Signatures
--- OUTSIDE RECORDS SUMMARY | 2024-10-21 09:24 | XMS_ITS ---
Author Organization [facility] ([address]) Address [address] [place] [phone] Care Team Providers Care Blasting Coal Miner Name Role Phone Emeka Torres [phone] REASON FOR VISIT [facility], [...] 08/19/2023 Encounters Encounter Location Date Provider Diagnosis [facility] ([address]) [address] [place] [phone] 08/19/2023 Emeka Torres Morbid (severe) obesity due [...] abdomen Frequency: weekly Lot Number/Expiration: Medication Source: [facility] Adverse Reaction: None Progress Notes * Howard MARSHALLaDOB:1950 ( 74 yo F)Acc No.[id number]:08/19/2023 Weight Loss Patient: Rosa MCKAY Provider: Zaid Torres MD :1950 A ge:73 Y S ex:Female Date:08/19/2023 Address:[address] [place], [place] [id number] Subjective: * Chief Complaints: * 1 . [...] ot Number/Expiration 0 M edication Source H [facility] A dverse Reaction N one * Follow Up: 1 Week (Reason: GLP-1 Agonist Administration) * Billing Information: * Visit Code: * Procedure Codes: * Electronic signature of Alfredo Torres MD, FAAAAI on 10/21/2024 at 09:24 AM CDT Sign off status: Pending * Provider: Zaid Torres MD Date: 0 08/19/2023 Generated for Rush toledo/Mati/Tiago on: 0 10/21/2024 09:24 AM CDT
--- OUTSIDE RECORDS SUMMARY | 2024-10-21 09:24 | XMS_ITS | Patient Health Record ---
Author Organization [facility] ([address]) Address [address] [phone] Support Name Relationship Address Phone Rosa Newell Guarantor Unknown [phone] Reason For Referral No Information Problems Problem Type SNOMED Code ICD Code Onset Dates Problem Status W/U Status Risk Notes Problem Morbid obesity (disorder) (618106692) Morbid (severe) obesity due to excess calories (E66.01) Active confirmed Problem Chronic fatigue syndrome (disorder) (60212285) Chronic fatigue, unspecified (R53.82) Active confirmed Plan Of Treatment No Information
--- OUTSIDE RECORDS SUMMARY | 2024-10-21 09:24 | XMS_ITS | Encounter Summary ---
Author Organization [facility] Address [address] [place] [address] Care Team Providers Care Cloth Booker Name Role Phone Fatou Mcgee MD Primary Care Provider + Misael Wilson OT Unavailable Unavailable Benigno Hoffman MD Unavailable [phone] Encounter Details Date Type Department Care Team (Late st Contact Info) Description 10/20/2024 1:00 PM CDT Orders Only [facility] [address] [place] [address] Social History Tobacco Use Types Packs/Day Years Used Date Smoking Tobacco: Former Cigarettes Smokeless Tobacco: Never AUDIT-C Answer Date Recorded Q1: How often [...] on file 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
--- OUTSIDE RECORDS SUMMARY | 2024-10-21 09:25 | XMS_ITS ---
Author Organization [facility] ([address]) Address [address] [place] [phone] Care Team Providers Care Bonding Agent Name Role Phone Emeka Torres [phone] REASON FOR VISIT [facility], [...] 08/11/2023 Encounters Encounter Location Date Provider Diagnosis [facility] ([address]) [address] [place] [phone] 08/11/2023 Emeka Torres Morbid (severe) obesity due [...] abdomen Frequency: weekly Lot Number/Expiration: Medication Source: [employer] Adverse Reaction: None Progress Notes * Howard MARSHALLaDOB:1950 ( 74 yo F)Acc No.[id number]:08/11/2023 Weight Loss Patient: Rosa MCKAY Provider: Zaid Torres MD :1950 A ge:73 Y S ex:Female Date:08/11/2023 Address:[address] [place], [place] [phone] Subjective: * Chief Complaints: * 1 . [...] ot Number/Expiration 0 M edication Source [facility] A dverse Reaction N one * Follow Up: 1 Week (Reason: GLP-1 Agonist Administration) * Billing Information: * Visit Code: * Procedure Codes: 84641 InBody Consult. * Electronic signature of Patjimmie Torres MD, FAAAAI on 10/21/2024 at 09:24 AM CDT Sign off status: Pending * Provider: Zaid Torres MD Date: 0 08/11/2023 Generated for Rush toledo/Mati/Tiago on: 0 10/21/2024 09:24 AM CDT
--- OUTSIDE RECORDS SUMMARY | 2024-10-21 09:25 | XMS_ITS | Referral Summary ---
Author Organization [facility] Address [address] [place] [address] Care Team Providers Care Temperature Regulator Pyrometer Name Role Phone Fatou Mcgee MD Primary Care Provider + Misael Wilson OT Unavailable Unavailable Benigno Hoffman MD Unavailable [phone] Encounters Date Type Department Care Team Description 10/20/2024 1:00 PM CDT Orders Only [facility] [address] [place] [address] 10/13/2024 Telephone [facility] Sports Medicine [address] [place] [address] [address] [address] Evon Kuo MA surgery 10/12/2024 11:45 AM CDT Office Visit [facility] Medicine [address] [place] [address] [place] [phone] Benigno Hoffman MD Pre-operative exam (Primary Dx); Primary osteoarthritis of left hip; Aftercare following joint replacement surgery, unspecified joint 10/06/2024 11:30 AM CDT Orders Only [facility] [address] [place] [address] 09/29/2024 1:00 PM CDT Orders Only [facility] [address] [place] [address] 09/22/2024 11:30 AM CDT Orders Only [facility] [address] [place] [address] 09/14/2024 11:45 AM CDT Office Visit [facility] [address] [place] [address] [address] [place] [address] Benigno Hoffman MD Aftercare following joint replacement surgery, unspecified joint (Primary Dx); Delayed surgical wound healing, initial encounter; Postoperative abscess involving suture 09/07/2024 11:45 AM CDT Office Visit [facility] Orthopedics and Sports Medicine [address] [place] [address] [address] [place] [address] Diana Holly NP Aftercare following right hip joint replacement surgery (Primary Dx) 09/06/2024 10:15 AM CDT Orders Only [facility] [address] [place] [address] 09/01/2024 2:30 PM CDT Orders Only [facility] [address] [place] [address] 08/25/2024 3:00 PM CDT Orders Only [facility] [address] [place] [address] 08/19/2024 3:00 PM CDT Orders Only [facility] [address] [place] [address] 08/12/2024 3:00 PM CDT Orders Only [facility] [address] [place] [address] Aftercare following right hip joint replacement surgery 08/12/2024 11:30 AM CDT Lab [address] [address] Aftercare following right hip joint replacement surgery 08/12/2024 Telephone [facility] Medical [facility]ics [facility] Sports Medicine [address] [place] [address] [address] [place] [address] Benigno Hoffman MD 08/12/2024 Orders Only [facility]ics and Sports Medicine [address] [place] [address] [address] [place] [address] Benigno Hoffman MD Aftercare following right hip joint replacement surgery (Primary Dx) 08/12/2024 Orders Only [facility] Sports Medicine [address] [place] [address] [address] [place] [address] Benigno Hoffman MD Aftercare following right hip joint replacement surgery (Primary Dx) 08/12/2024 7:43 AM CDT - 08/12/2024 11:59 PM CDT Hospital Encounter [facility]ics and Sports Medicine [address] [place] [address] [address] [place] [address] Discharge Disposition: Discharge to home or self care 08/12/2024 10:30 AM CDT Office Visit [facility] Sports Medicine [address] [place] [address] [address] [place] [address] Diana Holly NP Aftercare following right hip [...] on file 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 Gender Identity Not on file Sexual Orientation [...] on file Medical Devices Implanted Type Area Solar Installer Pv Device Identifier Shelf Expiration Date Model / Serial / Lot Joint Bilater al: Knee Depuy [employer] [place] 52mm 36mm Hip Neutral Liner Acetabular Altrx Sterile Latex Free [id number] - [id number] Implanted:Qty: 1 on 06/14/2024 by Benigno Hoffman MD at [facility] Right: Hip [employer] Inc [id number] 02/20/2029 [id number] / / [id number] Dep[employer] [place] 52mm Sector Hip Shell Acetabular Gription Sterile Latex Free [id number] - [id number] Implanted:Qty: 1 on 06/14/2024 by Benigno Hoffman MD at [facility] Right: Hip [employer] Inc [id number] 03/23/2034 [id number] / / [id number] Dep[employer] [place] 6.5mm 25mm Acetabular Cancellous Screw Bone Sterile 1217-25-500 - [id number] Implanted:Qty: 1 on 06/14/2024 by Benigno Hoffman MD at [facility] Right: Hip [employer]uy [employer] Inc 09/20/2033 1217-25-500 / / Depuy [employer] [place] 6.5mm 25mm Acetabular Cancellous Screw Bone Sterile 1217-- - [id number] Implanted:Qty: 1 on 06/14/2024 by Benigno Hoffman MD at [facility] Right: Hip Depuy [employer] Inc [id number] 03/23/2034 1217-25-500 / / [id number] Dep[employer] Actis Collar Hip 7 High Offset Stem Femoral [id number] - [id number] Implanted:Qty: 1 on 06/14/2024 by Benigno Hoffman MD at [facility] Right: Hip [employer]uy [employer] Inc [id number] 04/23/2034 [id number] / / [id number] Dep[employer] Inc Articul/Segundo 36mm Cementless Hip +1.5mm 12/14 Taper Head Femoral Latex Free [id number] - [id number] Implanted:Qty: 1 on 06/14/2024 by Benigno Hoffman MD at [facility] Right: Hip [employer] Inc [id number] 03/23/2029 [id number] / / [id number] Procedures Procedure Name Priority Date/Time Associated Diagnosis [...] joint replacement surgery SCREENING MAMMOGRAM BILATERAL W DIPESH Schedule Routine, Read Routine (OP Routine) 01/08/2023 [...] 4 AM CDT 08/12/2024 11:37 AM CDT us Benigno Hoffman MD LAB BLOOD ORDERABLES Fin al Result Performing Organization Address City/[facility] Co de Phone Number [facility] ([place]) [address] [facility] [place] [address] * (ABNORMAL) CRP (acute phase) (08/12/2024 11:34 AM CDT) CRP 30.9(H) <=10.0 mg/L Blood 08/12/2024 11:3 4 AM CDT 08/12/2024 11:37 AM CDT us Benigno Hoffman MD LAB BLOOD ORDERABLES Fin al Result Performing Organization Address City/[facility] Co de Phone Number [facility] [place]) [address] [place] [address] [place] [address] * XR Hip Right 2 or 3 Views (08/12/2024 10:24 AM CDT) Anatomical Region Laterality Modality Lower Extremities, Hip, Pelvis Right D igital Radiography Narrative 08/12/2024 1:59 PM CDT Radiographs taken of the right hip today reveal a total hip arthroplasty in appropriate position with no interval change from the time of surgery. us Diana Holly APPLICATIONS PROCESSOR IMG XR PROCEDURES Final Result * Screening Mammogram Bilateral W Dipesh (01/08/2023 2:25 PM CDT) Anatomical Region Laterality [...] PM CDT EXAMINATION: SCREENING MAMMOGRAM BILATERAL W DIPESH ORDERING HEALTHCARE PROVIDER: SELF SCREENING MAMMOGRAM HISTORY: [...] old F with given history of screening. Solar Installer Pv/Model: [employer] (S/N [id number]) CLINICAL INFORMATION: Current height: 66.5 inches Maximum [...] Lisa Heath M.D. TB: TB Report ID: [id number] Reading Location: [facility] Procedure Note Lisa Heath MD - 09/21/2020 EXAM DESCRIPTION: DEXA AXIAL SKELETON BONE DENSITY 1 OR MORE SITES REASON FOR STUDY: 70 y/o year old F with given history ofscreening. Solar Installer Pv/Model: [employer] (S/N 09576) CLINICAL INFORMATION: Current height: 66.5 inches Maximum [...] Lisa Heath M.D. TB: TB Report ID: [id number] Reading Location: [facility] Champ Spencer MD IMG DXA PROCEDUR ES Final Result from Last 3 Months or Most Recently Relevant to Health Maintenance [place] [address] COMMERCIAL [employer] MEDICARE SUPPLEMENT MEDICARE [facility] MEDICARE SUPPLEMENT Advance Directives For more information, please contact: [phone] * Full Code (Latest Code Status on File) Date Activated Date Inactivated Comments 06/14/2024 12:46 PM 06/15/2024 4:22 PM Care Teams Temperature Regulator Pyrometer Relationship Specialty Start Date End Date Fatou Mcgee MD PCP - General 08/27/18 Mis[place] Wilson, OT Occupational Therapist Occupational Therapy 05/05/24 Benigno Hoffman MD [address] [place] [address] [address] [place] [address] Surgeon Orthopedic Surgery 05/14/24
--- OUTSIDE RECORDS SUMMARY | 2024-10-21 09:25 | XMS_ITS | Encounter Summary ---
Author Organization [facility] Address [address] [place] [address] Care Team Providers Care Sheet Tailer Name Role Phone Fatou Mcgee MD Primary Care Provider + Misael Wilson OT Unavailable Unavailable Benigno Hoffman MD Unavailable [phone] Reason for Visit * Reason Onset Date Comments Scheduling Appointments 09/20/2020 Confirmi ng mammogram appt Encounter Details Date Type Department Care Team (Late st Contact Info) Description 09/20/2020 Telephone [facility] [address] [place] [address] Ligia Beauchamp RT Scheduling Appointments (Confirming mammogram appt) Social History Tobacco Use Types Packs/Day Years Used Date Smoking Tobacco: Former Comments No Sex and Gender Information Value Date Recorded Sex Assigned at Not on file 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
--- OUTSIDE RECORDS SUMMARY | 2024-10-21 09:25 | XMS_ITS | Clinical Summary ---
Author Organization [facility] Address [address] [facility] [address] [place] [address] Phone Care Team Providers Care Monitoring Engineer Name Role Phone Rajiv Mcgee MD Primary Care Provider [phone] Allergies No known active allergies Medications naproxen [...] Procedure Name Priority Date/Time Associated Diagnosis Comments [facility] BONE DENSITOMETRY AXIAL SKELETON Routine 06/12/2017 9:11 AM CDT Postmenopausal [facility] SCREENING BILATERAL DIGITAL W CAD W ELIJAH Routine 06/07/2016 from Last 3 Months or Most Recently Relevant to Health Maintenance Results * [facility] BONE DENSITOMETRY AXIAL SKELETON (06/12/2017 9:11 AM [...] Narrative 06/23/2017 9:50 AM CDT EXAM DESCRIPTION: [facility] BONE DENSITOMETRY AXIAL SKELETON COMPLETED DATE/TIME: 06/12/2017 9:12 am REASON FOR STUDY: 66 y/o year old postmenopausal female with given history of screening. Manufacturing Leader/Model: Major Aide (S/N [id number]) CLINICAL INFORMATION: Current height: 67 inches Maximum [...] Fuentes Vera M.D. NH: ANYA Report ID: [id number] Reading Location: [place] [address] Procedure Note Fuentes Vera MD - 06/23/2017 EXAM DESCRIPTION: [facility] BONE DENSITOMETRY AXIAL SKELETON COMPLETED DATE/TIME: 06/12/2017 9:12 am REASON FOR STUDY: 66 y/o year old postmenopausal female with given history of screening. Manufacturing Leader/Model: Major Aide (S/N [id number]) CLINICAL INFORMATION: Current height: 67 inches Maximum [...] Fuentes Vera M.D. NH: ANYA Report ID: [id number] Reading Location: [place] [address] IMPRESSION: Low bone mass. Fracture risk, as [...] Recently Relevant to Health Maintenance Insurance MEDICARE [employer] Care Teams Monitoring Engineer Relationship Specialty Start Date End Date Rajiv Mcgee MD [address] [place] [address] [address] [place] [address] PCP - General Family Medicine 01/02/18
--- OUTSIDE RECORDS SUMMARY | 2024-10-21 09:25 | XMS_ITS ---
Author Organization [facility] Address [address] [place] [phone] Care Team Providers Care Electroplater Helper Name Role Phone Emeka Torres [phone] REASON FOR VISIT InBody Follow-up Encounters Encounter Location Date Provider Diagnosis [facility] ([address]) [address] [place] [phone] 08/19/2023 Emeka Torres Plan Of Treatment No Information Progress Notes * Howard MARSHALLShayyB:1950 ( 74 yo F)Acc No.[id number]:08/19/2023 InBody Follow-up Patient: Rosa MCKAY Provider: Zaid Torres MD :1950 A ge:73 Y S ex:Female Date:08/19/2023 Address:[address] [place], [place] [id number] Subjective: * Chief Complaints: * 1 . InBody Follow-up. * Medical History: Objective: * Vitals: Assessment: Plan: * Treatment: * Billing Information: * Visit Code: * Procedure Codes: * Electronic signature of Alfredo Torres MD, FAAAAI on 10/21/2024 at 09:24 AM CDT Sign off status: Pending * Provider: Zaid Torres MD Date: 08/19/2023 Generated for Printi ng/Fabhupendrag/eTransmitting on: 10/21/2024 09:24 AM CDT
--- OUTSIDE RECORDS SUMMARY | 2024-10-21 09:25 | XMS_ITS | Clinical Summary ---
Author Organization [facility] Address [address] [place] [address] Care Team Providers Care Soaker Soda Worker Name Role Phone Fatou Mcgee MD Primary Care Provider + [place]ael Wilson OT Unavailable Unavailable Benigno Hfofman MD Unavailable [phone] Allergies No known active allergies Medications gabapentin [...] Description 10/20/2024 1:00 PM CDT Orders Only [facility] [address] [place] [address] 10/13/2024 Telephone [facility] Medical Group Orthopedics and Sports Medicine [address] [place] [address] [address] [place] [address] Evon Kuo MA surgery 10/12/2024 11:45 AM CDT Office Visit [facility] Orthopedics and Sports Medicine [address] [place] [address] [address] [place] [address] Benigno Hoffman MD Pre-operative exam (Primary Dx); Primary osteoarthritis of left hip; Aftercare following joint replacement surgery, unspecified joint 10/06/2024 11:30 AM CDT Orders Only [facility] [address] [place] [address] 09/29/2024 1:00 PM CDT Orders Only [facility] [address] [place] [address] 09/22/2024 11:30 AM CDT Orders Only [facility] [address] [place] [address] 09/14/2024 11:45 AM CDT Office Visit [facility] Medical [facility] Orthopedics and Sports Medicine [address] [place] [address] [address] [place] [address] Benigno Hoffman MD Aftercare following joint replacement surgery, unspecified joint (Primary Dx); Delayed surgical wound healing, initial encounter; Postoperative abscess involving suture 09/07/2024 11:45 AM CDT Office Visit [facility] Orthopedics and Sports Medicine [address] [place] [address] [address] [place] [address] Diana Holly NP Aftercare following right hip joint replacement surgery (Primary Dx) 09/06/2024 10:15 AM CDT Orders Only [facility] [address] [place] [address] 09/01/2024 2:30 PM CDT Orders Only [facility] [address] [place] [address] 08/25/2024 3:00 PM CDT Orders Only [facility] [address] [place] [address] 08/19/2024 3:00 PM CDT Orders Only [facility] [address] [place] [address] 08/12/2024 3:00 PM CDT Orders Only [facility] [address] [place] [address] Aftercare following right hip joint replacement surgery 08/12/2024 11:30 AM CDT Lab [address] [address] Aftercare following right hip joint replacement surgery 08/12/2024 10:30 AM CDT Office Visit [facility] Medical [facility] Orthopedics and Sports Medicine [address] [place] [address] [address] [place] [address] Diana Holly NP Aftercare following right hip joint replacement surgery (Primary Dx) 08/12/2024 7:43 AM CDT - 08/12/2024 11:59 PM CDT Hospital Encounter [facility] Medical [facility] Orthopedics and Sports Medicine [address] [place] [address] Discharge Disposition: Discharge to home or self care 08/12/2024 Telephone [facility]ics and Sports Medicine [address] [facility] [address] [place] [address] Benigno Hoffman MD 08/12/2024 Orders Only [facility] [address] [facility] [address] [place] [address] Benigno Hoffman MD Aftercare following right hip joint replacement surgery (Primary Dx) 08/12/2024 Orders Only [facility] [address] [facility] [address] [place] [address] Benigno Hoffman MD Aftercare following right hip [...] on file 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 Gender Identity Not on file Sexual Orientation [...] exists Fall Risk Assessment 06/15/2025 06/15/2024, 05/05/19 25 Breast Cancer Screening-Mammogram Discontinued 01/08/2023, 12/03/2021, 09/21/2020, Additional history exists Medical Devices Implanted Type Area Donor Relations Officer Device Identifier Shelf Expiration Date Model / Serial / Lot Joint Bilater al: Knee Depuy [employer] [place] 52mm 36mm Hip Neutral Liner Acetabular Altrx Sterile Latex Free [id number] - [id number] Implanted:Qty: 1 on 06/14/2024 by Benigno Hoffman MD at [facility] Right: Hip [employer]uy [employer] Inc [id number] 02/20/2029 [id number] / / [id number] [employer] [place] 52mm Sector Hip Shell Acetabular Gription Sterile Latex Free [id number] - [id number] Implanted:Qty: 1 on 06/14/2024 by Benigno Hoffman MD at [facility] Right: Hip [employer]uy [employer] Inc [id number] 03/23/2034 [id number] / / [id number] Dep[employer] [place] 6.5mm 25mm Acetabular Cancellous Screw Bone Sterile 1217-- - [id number] Implanted:Qty: 1 on 06/14/2024 by Benigno Hoffman MD at [facility] Right: Hip Depuy [employer] Inc 09/20/2033 121-500 / / Depuy [employer] [place] 6.5mm 25mm Acetabular Cancellous Screw Bone Sterile - [id number] Implanted:Qty: 1 on 06/14/2024 by Benigno Hoffman MD at [facility] Right: Hip [employer]uy [employer] Inc [id number] 03/23/2034 121--500 / / [id number] Dep[employer] Actis Collar Hip 7 High Offset Stem Femoral [id number] - [id number] Implanted:Qty: 1 on 06/14/2024 by Benigno Hoffman MD at [facility] Right: Hip [employer]uy [employer] Inc [id number] 04/23/2034 [id number] / / [id number] Dep[employer] Articul/Segundo 36mm Cementless Hip +1.5mm 12/14 Taper Head Femoral Latex Free [id number] - [id number] Implanted:Qty: 1 on 06/14/2024 by Benigno Hoffman MD at [facility] Right: Hip [employer]uy [employer] [id number] 03/23/2029 [id number] / / [id number] Procedures Procedure Name Priority Date/Time Associated Diagnosis [...] MD LAB BLOOD ORDERABLES Fin al Result [facility] ([place]) [address] [facility] [place] [address] * (ABNORMAL) CRP (acute phase) (08/12/2024 11:34 AM CDT) CRP 30.9(H) <=10.0 mg/L Blood 08/12/2024 11:3 4 AM CDT 08/12/2024 11:37 AM CDT Benigno Hoffman MD LAB BLOOD ORDERABLES Fin al Result [facility] ([place]) [address] [facility] [place] [address] * XR Hip Right 2 or 3 Views (08/12/2024 10:24 AM CDT) Anatomical Region Laterality Modality Lower Extremities, Hip, Pelvis Right D igital Radiography Narrative 08/12/2024 1:59 PM CDT Radiographs taken of the right hip today reveal a total hip arthroplasty in appropriate position with no interval change from the time of surgery. Diana Holly NP IMG XR PROCEDURES Final Result * Screening [...] her next mammogram. Electronically signed by: Senthil eLahy M.D. Narrative 01/08/2023 2:36 PM CDT EXAMINATION: [...] suspicious finding in either breast on mammogram. Self Screening Mammogram IMG MAMMO PROCEDURES Fi nal Result * Dexa Axial Skeleton Bone Density 1 or 2 Site (09/21/2020 11:07 AM CDT) Anatomical Region Laterality Modality Body N/A Other 09/21/2020 4:01 PM CDT Narrative 09/21/2020 4:02 PM CDT EXAM DESCRIPTION: DEXA AXIAL SKELETON BONE DENSITY 1 OR MORE SITES REASON FOR STUDY: 70 y/o year old F with given history of screening. Donor Relations Officer/Model: [employer] (S/N [id number]) CLINICAL INFORMATION: Current height: 66.5 inches Maximum [...] Lisa Heath M.D. TB: TB Report ID: [id number] Reading Location: [facility] [place] Procedure Note Lisa Heath MD - 09/21/2020 EXAM DESCRIPTION: DEXA AXIAL SKELETON BONE DENSITY 1 OR MORE SITES REASON FOR STUDY: 70 y/o year old F with given history ofscreening. Donor Relations Officer/Model: [employer] Discovery SL (S/N [id number]) CLINICAL INFORMATION: Current height: 66.5 inches Maximum [...] 09/21/2020 4:02 PM - Electronically signed by Lisasuyapa Heath M.D. TB: TB Report ID: [id number] [facility] Champ Spencer MD IMG DXA PROCEDUR ES Final Result from Last 3 Months or Most Recently Relevant to Health Maintenance Insurance MEDICARE COMMERCIAL GENERIC [employer] MEDICARE SUPPLEMENT MEDICARE [facility] MEDICARE SUPPLEMENT Advance Directives For more information, please contact: [phone] * Full Code (Latest Code Status on File) Date Activated Date Inactivated Comments 06/14/2024 12:46 PM 06/15/2024 4:22 PM Care Teams Soaker Soda Worker Relationship Specialty Start Date End Date Fatou Mcgee MD PCP - General 08/27/18 [place] Wilson, OT Occupational Therapist Occupational Therapy 05/05/24 Benigno Hoffman MD [address] [place] [address] [address] [place] [address] Surgeon Orthopedic Surgery 05/14/24
== END 2024-10-21 09:10 | disposition home or self-care (01) ==
PROVIDERS: PCP Family Medicine; Visit Provider Family Medicine
DX: R94.31 Abnormal electrocardiogram [ECG] [EKG] (principal)
CPT/HCPCS: 78452; 93017; A9502; J2785

== ENCOUNTER 2024-11-16 00:30 | Day surgery (SDC) | payer MEDICARE, SELFPAY ==
--- NOTE | 2024-10-04 14:58 | PC.NURSE ---
Addendum entered by Iraida Zhao RN 11/02/24 15:15: Pt called, no change in status, passed stress test, new date and times noted, pt aware as below - Verbalized understanding and questions answered. OC Report to the Outpatient Waiting Room, entrance under the green pavilion located off [address], at time __7:30 am on date __11/16/24 . Planned Procedure Time: _09:30 am .? Time changes happen often and if your time is changed the preop area will call you the afternoon before. - You and your visitor will be asked to self-screen and do not enter if you have any COVID symptoms. Please call surgeon if you need to reschedule. - A mask is optional within the hospital at this time. Patients may have clear liquids (water, carbonated beverages, clear teas, apple juice) until 3 hours prior to surgery (0630amam) with a maximum of 20 ounces. - No food from midnight until time of surgery and no smoking, or chewing tobacco (or any form of nicotine). No chewing gum, candy or mints. - Take only the following medications with a SIP of water on the morning of surgery: __gabapentin ,hydrocodone,if needed for pain DO NOT STOP ANY OF YOUR OTHER PRESCRIPTION MEDICATIONS PRIOR TO SURGERY EXCEPT THE FOLLOWING Hold all vitamins and supplements for 3 days per anesthesiologist. Last dose is 11/12/24 Medications to discontinue per physician Celecoxib per Dr.Wikiera Boucher last dose 11/04/24 10 days pre op per anesthesia Original Note: Report to the Outpatient Waiting Room, entrance under the green pavilion located off [address], at time __8 am on date __10/13/24 . Planned Procedure Time: _10 am .? Time changes happen often and if your time is changed the preop area will call you the afternoon before. - You and your visitor will be asked to self-screen and do not enter if you have any COVID symptoms. Please call surgeon if you need to reschedule. - A mask is optional within the hospital at this time. Patients may have clear liquids (water, carbonated beverages, clear teas, apple juice) until 3 hours prior to surgery (7 am) with a maximum of 20 ounces. - No food from midnight until time of surgery and no smoking, or chewing tobacco (or any form of nicotine). No chewing gum, candy or mints. - Take only the following medications with a SIP of water on the morning of surgery: __gabapentin ,hydrocodone,if needed for pain DO NOT STOP ANY OF YOUR OTHER PRESCRIPTION MEDICATIONS PRIOR TO SURGERY EXCEPT THE FOLLOWING Hold all vitamins and supplements for 3 days per anesthesiologist.last dose 10/09/24 Medications to discontinue per physician celecoxib per dr scout boucher last dose 10/02/24 10 days pre op per anesthesia Please no make-up, nail cymro, hairspray, perfume, deodorant, or body powder the day of surgery.? No jewelry (including any body piercings) or valuables the day of surgery, leave them at home.? Please take a shower or bath the night before, or the morning of, surgery with an antibacterial soap.? Wear comfortable, loose fitting clothing.? Children are encouraged to wear pajamas. - Jewelry must be removed prior to entering the operating room.? Rings and piercings that are not removed may be cut off. - The hospital will not accept responsibility for valuables.? - Please leave all valuables, including medications, at home the day of surgery. If you are going home after surgery, a licensed dedicated intermodal truck driver must drive you home.? - NO public transportation without another adult if you receive anesthesia. - We recommend that an adult stay with you for 24 hours following discharge. - We also recommend that you do not drive, make important decision, drink alcoholic beverages, or take any drugs that were not prescribed by your health care provider for at least 24 hours after your discharge time. For Pediatric surgeries, we recommend two adults accompany the child home. Follow any additional instructions given to you from your surgeon. Telephone instructions given to ___patient and asked if any additional questions and then verbalized understanding. Patient advised to call surgeon office or pre surgery nurse liaison [phone] if any additional questions.
[2024-10-04 15:14] VITALS: BMI 38.2
--- OUTSIDE RECORDS SUMMARY | 2024-10-13 00:35 | XMS_ITS | Encounter Summary ---
Author Organization [facility] Address [address] [place] [address] Care Team Providers Care Porcelain Buildup Assistant Name Role Phone Fatou Mcgee MD Primary Care Provider + Misael Wilson OT Unavailable Unavailable Benigno Hoffman MD Unavailable [phone] Reason for Referral * Cardiology (Routine) - Authorized Specialty Diagnoses / Procedures Referred By Contac t Referred To Contact Diagnoses Pre-operative exam Procedures ECG 12 lead Benigno Hoffman MD [address] [place] [address] [address] [address] Phone: tel: [facility] [facility] [address] [place] [address] Referral ID Status Reason Start Date Expiration Date V isits Requested Visits Authorized [id number] Authorized 10/12/2024 11/11/2025 1 1 Reason for Visit * Reason Comments Pain Encounter Details Date Type Department Care Team (Late st Contact Info) Description 10/12/2024 11:45 AM CDT Office Visit [facility] [address] [facility] [address] [address] Benigno Hoffman MD [address] [place] [address] [address] [place] [address] Pre-operative exam (Primary Dx); Primary osteoarthritis of left hip; Aftercare following joint replacement surgery, unspecified joint Social History Tobacco Use Types Packs/Day Years Used Date Smoking Tobacco: Former Cigarettes Smokeless Tobacco: Never Tobacco Cessation:Counseling Given: Not Answered AUDIT-C Answer Date Recorded Q1: How often do you have a drink containing alcohol? Never 08/12/2024 Q2: How many drinks containi ng alcohol do you have on a typical day when you are drinking? Patient does not drink Q3: How often do you have si x or more drinks on one occasion? Never 08/12/2024 Personal Safety Answer Date Recorded Have you ever been in or are you currently in a harmful physical or emotional relationship or is someone making you feel afraid or unsafe? 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 Gender Identity Not on file Sexual Orientation Not on file documented as of this encounter Last Filed Vital Signs Vital Sign Reading Time Taken Comments Blood Pressure 115/72 10/12/2024 11:48 AM CDT Pulse 77 10/12/2024 11:48 AM CDT Temperature - - Respiratory Rate - - Oxygen Saturation - - Inhaled Oxygen Concentration - - Weight 105.7 kg (233 lb) 10/12/2024 11:48 AM CDT Height 165.1 cm (5' 5) 10/12/2024 11:48 AM CDT Body Mass Index 38.77 10/12/2024 11:48 AM CDT documented in this encounter Progress Notes * Benigno Hoffman MD - 10/12/2024 11:45 AM CDT Images from the original note were not included. FOLLOW UP VISIT Subjective CHIEF COMPLAINT She had concerns including Pain of the Left Hip. HISTORY OF PRESENT ILLNESS This is a pleasant 74-year-old female status post right total hip arthroplasty with some delayed wound healing due to morbid obesity, pannus, and fungal infection in the crease. She is requesting left total hip arthroplasty for severe left hip osteoarthritis. This has been refractory to extensive co nservative management including anti-inflammatories, pain medication, injections, activity modification, and more. Pain Assessment Pain Assessment: 0-10 Pain Score: 4 Pain Location: Hip Pain Orientation: Left MEDICATIONS She has a current medication list which includes the following prescription(s): alprazolam, ascorbic acid, aspirin, celecoxib, gabapentin, oxybutynin xl, oxycodone-acetaminophen, senna-docusate, and zepbound. REVIEW OF SYSTEMS Review of Systems Constitutional: Negative for appetite change and fever. HENT: Negative for drooling, facial swelling and voice change. Eyes: Negative for discharge. Respiratory: Negative for apnea and wheezing. Cardiovascular: Negative for chest pain and palpitations. Gastrointestinal: Negative for abdominal distention and abdominal pain. Endocrine: Negative for polydipsia. Genitourinary: Negative for flank pain. Musculoskeletal: Positive for arthralgias and myalgias. Skin: Negative for color change and rash. Neurological: Negative for speech difficulty. Hematological: Does not bruise/bleed easily. Psychiatric/Behavioral: Negative for hallucinations. Objective PHYSICAL EXAM BP 115/72 Pulse 77 Ht 165.1 cm (5' 5) Wt 105.7 kg (233 lb) BMI 38.77 kg/m?? Left hip Inspection Erythema: absent Edema: absent Swelling: absent Effusion: absent Skin temperature: normal Surgical scar/wound: absent. Gait: antalgic Limp: slight Supportive device: none Limb length: equal. Palpation Tenderness: absent. Radiating pain: no. Pop or click: no. Pelvic stability AP stress: stable Pelvic stability lateral stress: stable Range of motion The patient has reduced range of motion of the left hip. The patient has pain with range of motion of the left hip. Stability The patient has normal stability of the left hip. Strength The patient has 5/5 strength throughout. Neurovascular The patient has normal vascular on the left side of their body. The patient has normal sensation on the left side of their body. Tests Anterior impingement: positive Lateral impingement: positive Anterior apprehension: positive AGUILA: positive Zoila's: negative Resisted SLR (straight leg raise): positive REVIEW OF X-RAYS/STUDIES/LABS Right total hip arthroplasty in appropriate position with no interval change. Severe advanced left hip osteoarthritis with [id number] contact, osteophyte formation, subluxation. Assessment/Plan Rosa was seen today for pain. Diagnoses and all orders for this visit: Pre-operative exam - Hemoglobin A1c; Future - Urinalysis reflex to microscopic and culture Urine; Future - XR Chest Pa Lateral 2 Views; Future - ECG 12 lead; Future - Comprehensive metabolic panel; Future - CBC with auto differential; Future Primary osteoarthritis of left hip Aftercare following joint replacement surgery, unspecified joint PLAN I personally discussed the nature of the patient's arthritis with the patient in clinic today. The patient has tried conservative treatment with minimal relief. I recommended total hip replacement inclinic today and personally discussed the risks and benefits of total hip replacement with the patient. The risks that were discussed include, but are not limited to, delayed wound healing, infection, blood clot in the form of DVT or PE, leg length discrepancy, dislocation, periprosthetic fracture, persistent pain and dysfunction, need for additional surgery, implant wear and failure, perioperative myocardial infarction, stroke, pneumonia, and even . Patient understands these risks and agreed to proceed with the surgery as described above. All questions and concerns were addressed with the patient prior to informed surgical consent being established in the office today. The patient will follow up for surgery. 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 Therefore I think it would be grayson to attempt a posterior approach in the left side to avoid this delayed wound healing. I discussed this and she agrees. We will plan to proceed in the fall after she has lost about 20 lb. Benigno Hoffman MD documented in this encounter Plan of Treatment Scheduled Orders Name Type Priority Associated Diagnoses Order Schedule Hemoglobin A1c Lab Routine Pre-operative exam Expected: 10/12/2024, Expires: 10/12/2025 Urinalysis reflex to microscopic and culture Urine Microbiology Routine Pre-operative exam Expected: 10/12/2024, Expires: 10/12/2025 XR Chest Pa Lateral 2 Views Imaging Schedule Routine, Read Routine (OP Routine) Pre-operative exam Expected: 10/12/2024, Expires: 10/12/2025 ECG 12 lead ECG Routine Pre-operative exam 1 Occurrences starting 10/12/2024 until 10/12/2025 Comprehensive metabolic panel Lab Routine Pre-operative exam Expected: 10/12/2024, Expires: 10/12/2025 CBC with auto differential Lab Routine Pre-operative exam Expected: 10/12/2024, Expires: 10/12/2025 documented as of this encounter Visit Diagnoses Diagnosis Pre-operative exam- Primary Unspecified pre-operative examination Primary osteoarthritis of left hip Aftercare following joint replacement surgery, unspecified joint documented in this encounter Care Teams Porcelain Buildup Assistant Relationship Specialty Start Date End Date Fatou Mcgee MD PCP - General 08/27/18 Misael Wilson, OT Occupational Therapist Occupational Therapy 05/05/24 Benigno Hoffman MD [address] [place] [address] [address] [place] [id number] Surgeon Orthopedic Surgery 05/14/24 documented as of this encounter
--- OUTSIDE RECORDS SUMMARY | 2024-10-13 00:36 | XMS_ITS | Clinical Summary ---
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 60 Tab 06/19/2017 Active Active Problems Problem Noted Date Diagnosed Date Status post bilateral knee replacements 06/06/19 18 Obesity (BMI 35.0-39.9 without comorbidity) 05/22 Osteopenia 05/18/2015 Impaired glucose tolerance Headache Immunizations Immunization Administration Dates Next Due Hepatitis A Vaccine 05/18/2015 Influenza Vaccine greater than 3 yrs 12/22/2013 Influenza, Seasonal, Injecta ble, Undefined 12/22/2013,03/12/2013 Influenza, high-dose, trivalent, PF 09/0 04/2016,11/22/2016,01/25/2016,2014 PUR HEP A ADULT IM 05/18/2015 Pneumococcal Vaccine - 13 Valent 06/05/2017 Pneumococcal Vaccine Adult - 23 Valent 06/22/2014 TD VACCINE 03/24/2011 Zoster Vaccine, live 03/24/2002 Social History Tobacco Use Types Packs/Day Years Used Date Smoking Tobacco: Former Smokeless Tobacco: Never Alcohol Use Standard Drinks/Week Comments No 0 (1 standard drink = 0.6 oz pur e alcohol) Comments No Sex and Gender Information Value Date Recorded Sex Assigned at Not on file Legal Sex Female 9:45 PM CDT Gender Identity Not on file Sexual Orientation Not on file Last Filed Vital Signs Vital Sign Reading Time Taken Comments Blood Pressure 112/76 06/05/2017 12:23 PM CDT Pulse 76 06/05/2017 12:23 PM CDT Temperature 37.1 C (98.8 F) 06/05/2017 12:23 PM CDT Respiratory Rate 20 06/05/2017 12:2 3 PM CDT Oxygen Saturation 98% 06/05/2017 12: 23 PM CDT Inhaled Oxygen Concentration - - Weight 112.3 kg (247 lb 9.6 oz) 018 12:23 PM CDT Height 170.2 cm (5' 7) 06/05/2017 12:2 3 PM CDT Body Mass Index 38.78 06/05/2017 12:23 PM CDT Plan of Treatment Health Maintenance Due Date Last Done Comments Hepatitis C Virus (HCV) Screening 1950 TdaP Immunization 1950 Cologuard 1994 Colonoscopy 1994 Colorectal Cancer Screening 1994 Immunochemical Fecal Occult Blood 1994 Zoster Immunization (2 of 3) 05/19/2002 03/24/2002 Pneumococcal Immunization (50+ years) (3 of 3 - PCV20 or PCV21) 06/05/2022 06/05/2017, 06/22/2014 SARS-COV-2 Immunization ( season) 2023 07/13/2021, 01/17/2021, 06/12/2020, Additional history exists Respiratory Syncytial Virus (RSV) Immunization (Adult) (1 - 1-dose 75+ series) 2024 Influenza Immunization (#1) 2024 09/0 04/2016, 11/22/2016, 01/25/2016, Additional history exists Mammogram Discontinued 06/07/2016, 05/11/2015 Pneumococcal Immunization Combined Discontinued 06/05/2017, 06/22/2014 DEXA Bone Density Discontinued 06/12/2017 Hepatitis B Immunization Aged Out No longer eligible based on patient's age to complete this topic Human Papillomavirus (HPV) Immunization Aged Out No longer eligible based on patient's age to complete this topic Meningococcal Immunization (ACWY) Aged Out No longer eligible based on patient's age to complete this topic Rotavirus Immunization Aged Out No lo nger eligible based on patient's age to complete this topic Procedures Procedure Name Priority Date/Time Associated Diagnosis Comments [facility] BONE DENSITOMETRY AXIAL SKELETON Routine 06/12/2017 9:11 AM CDT Postmenopausal [facility] SCREENING BILATERAL DIGITAL W CAD W ELIJAH Routine 06/07/2016 from Last 3 Months or Most Recently Relevant to Health Maintenance Results * [facility] BONE DENSITOMETRY AXIAL SKELETON (06/12/2017 9:11 AM CDT) Anatomical Region Laterality Modality BODY N/A Other 06/23/2017 9:47 AM CDT Impressions 06/23/2017 9:50 AM CDT IMPRESSION: Low bone mass. Fracture risk, as above. Significant increase in bone mineral density since 2014. Bone mineral density: Normal (T-score above or = -1.0) Low bone mass (T-score between -1.0 and -2.5) replaces the previously used term osteopenia Osteoporosis (T-score = or below -2.5) Medical evaluation for secondary causes of low bone mineral density may be appropriate. FRAX is a World Health Organization validated fracture risk assessment tool that calculates a person's 10 year probability of a major osteoporosis related fracture and hip fracture. According to the National Osteoporosis Foundation guidelines, postmenopausal women and men age 50 or older with low bone mass and a 10 year probability of a major osteoporosis related fracture = or greater than 20% or a 10 year probability of a hip fracture = or greater than 3% should be considered for treatment. For further information, including treatment recommendations, please refer to the 2013 ISCD Official Positions (http://www.iscd.org) and the NOF's Clinician's Guide to Prevention and Treatment of Osteoporosis (http://www.nof.org/professionals/clinical-guidelines) Narrative 06/23/2017 9:50 AM CDT EXAM DESCRIPTION: [facility] BONE DENSITOMETRY AXIAL SKELETON COMPLETED DATE/TIME: 06/12/2017 9:12 am REASON FOR STUDY: 66 y/o year old postmenopausal female with given history of screening. 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 COMPARISON: 11/29/2014 FINDINGS: AP LUMBAR SPINE L1-L4: Total BMD is 1.276 g/cm2 T-score is 0.7 Most recent prior BMD was 1.212 g/cm2 There has been a 5.3% increase in BMD which is statistically significant. LEFT HIP: Current Total BMD is 0.904 g/cm2 T-score is -0.8 Most recent prior Total BMD was 0.856 g/cm2 There has been a 5.6% increase in BMD which is statistically significant. Current femoral neck BMD is 0.858 g/cm2 T-score is -1.3 Fracture risk assessment (FRAX): 10 year risk for a major osteoporotic fracture is 8.3 % 10 year risk for a hip fracture is 0.8 % The FRAX tool has not been validated in patients currently or previously treated with pharmacotherapy for osteoporosis. In such patients, clinical judgement must be exercised in interpreting FRAX scores as the fracture risk may be overestimated. THIS IS AN ELECTRONICALLY VERIFIED FINAL REPORT 06/23/2017 9:47 AM - Electronically signed by Fuentes Vera M.D. NH: ANYA Report ID: [id number] Reading Location: [place] [address] Procedure Note Fuentes Vera MD - 06/23/2017 EXAM DESCRIPTION: [facility] BONE DENSITOMETRY AXIAL SKELETON COMPLETED DATE/TIME: 06/12/2017 9:12 am REASON FOR STUDY: 66 y/o year old postmenopausal female with given history of screening. 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 COMPARISON: 11/29/2014 FINDINGS: AP LUMBAR SPINE L1-L4: Total BMD is 1.276 g/cm2 T-score is 0.7 Most recent prior BMD was 1.212 g/cm2 There has been a 5.3% increase in BMD which is statistically significant. LEFT HIP: Current Total BMD is 0.904 g/cm2 T-score is -0.8 Most recent prior Total BMD was 0.856 g/cm2 There has been a 5.6% increase in BMD which is statistically significant. Current femoral neck BMD is 0.858 g/cm2 T-score is -1.3 Fracture risk assessment (FRAX): 10 year risk for a major osteoporotic fracture is 8.3 % 10 year risk for a hip fracture is 0.8 % The FRAX tool has not been validated in patients currently or previously treated with pharmacotherapy for osteoporosis. In such patients, clinical judgement must be exercised in interpreting FRAX scores as the fracture risk may be overestimated. THIS IS AN ELECTRONICALLY VERIFIED FINAL REPORT 06/23/2017 9:47 AM - Electronically signed by Fuentes Vera M.D. NH: ANYA Report ID: [id number] Reading Location: [place] [address] IMPRESSION: Low bone mass. Fracture risk, as above. Significant increase in bone mineral density since 2014. Bone mineral density: Normal (T-score above or = -1.0) Low bone mass (T-score between -1.0 and -2.5) replaces the previously used term osteopenia Osteoporosis (T-score = or below -2.5) Medical evaluation for secondary causes of low bone mineral density may be appropriate. FRAX is a World Health Organization validated fracture risk assessment tool that calculates a person's 10 year probability of a major osteoporosis related fracture and hip fracture. According to the National Osteoporosis Foundation guidelines, postmenopausal women and men age 50 or older with low bone mass and a 10 year probability of a major osteoporosis related fracture = or greater than 20% or a 10 year probability of a hip fracture = or greater than 3% should be considered for treatment. For further information, including treatment recommendations, please refer to the 2013 ISCD Official Positions (http://www.iscd.org) and the NOF's Clinician's Guide to Prevention and Treatment of Osteoporosis (http://www.nof.org/professionals/clinical-guidelines) us Kathy Colindres MD IMG DEXA ORDERABLES Final Re sult * TONE SCREENING BILATERAL DIGITAL W CAD W ELIJAH (06/07/2016) Anatomical Region Laterality Modality breast Bilateral Other us Kathy Colindres MD IMG MAMMO ORDERABLES Final R esult from Last 3 Months or Most Recently Relevant to Health Maintenance Insurance MEDICARE REPUCOM Care Teams It Software Engineer Relationship Specialty Start Date End Date Rajiv Mcgee MD [address] [place] [address] [address] [place] [address] PCP - General Family Medicine 01/02/18
--- OUTSIDE RECORDS SUMMARY | 2024-10-13 00:36 | XMS_ITS | Clinical Summary ---
Author Organization [facility] Address [address] [place] [address] Care Team Providers Care Patternmaker Apprentice Wood Name Role Phone Fatou Mcgee MD Primary Care Provider + Misael Wlison OT Unavailable Unavailable Benigno Hoffman MD Unavailable [phone] Allergies No known active allergies Medications gabapentin (NEURONTIN) 300 mg capsule Take 1 capsule (300 mg total) by mouth 2 (two) times a day 12/16/2022 Active tirzepatide, weight loss, (Zepbound) 2.5 mg/0.5 mL pen injector Inject under the skin Active oxyBUTYnin XL (DITROPAN-XL) 5 mg 24 hr tablet Take 1 tablet (5 mg total) by mouth daily 05/01/2024 Active ALPRAZolam (XANAX) 0.25 mg tablet Take 2 tablets (0.5 mg total) by mouth 3 (three) times a day as needed 0 04/30/2024 Active ascorbic acid (VITAMIN C) 500 mg tablet,chewable Indications:Vit deutsch deficiency prevention Take 1 tablet/chew tab (500 mg total) by mouth daily 30 tablet/chew tab 06/15/2024 Active aspirin 81 mg enteric coated tabletIndicatio ns:Deep Vein Thrombosis Prevention Take 1 tablet (81 mg total) by mouth 2 (two) times a day 84 tablet 06/15/2024 Active celecoxib (CeleBREX) 200 mg capsuleIndicati ons:Pain Take 1 capsule (200 mg total) by mouth 2 (two) times a day 84 capsule 06/15/2024 Active oxyCODONE-aceta minophen (PERCOCET) 5-325 mg per tabletIndicatio ns:Pain Take 1 tablet by mouth every 4 (four) hours as needed for pain 40 tablet 06/15/2024 Active senna-docusate (PERICOLACE) 8.6-50 mgIndications:c onstipation Take 2 tablets by mouth 2 (two) times a day 60 tablet 2 06/15/2024 Active Active Problems Problem Noted Date Diagnosed Date Aftercare following right hip joint replacement surgery 07/08/2024 Headache 12/31/2022 Impaired glucose tolerance 12/31/2022 Obesity (BMI 35.0-39.9 without comorbidity) 05/22 Status post bilateral knee replacements 06/06/19 Arthralgia of hip 02/26/2016 Osteopenia 05/18/2015 Surgical follow-up care 09/26/2014 Knee pain 07/22/2014 Resolved Problems Problem Noted Date Diagnosed Date Resolved Date Primary osteoarthritis of right hip 05/05/2024 07/08/2024 Encounters Date Type Department Care Team Description 10/12/2024 11:45 AM CDT Office Visit [facility] [address] [place] [address] [address] [address] Benigno Hoffman MD Pre-operative exam (Primary Dx); Primary osteoarthritis of left hip; Aftercare following joint replacement surgery, unspecified joint 10/06/2024 11:30 AM CDT Orders Only [facility] [address] [place] [address] 09/29/2024 1:00 PM CDT Orders Only [facility] [address] [place] [address] 09/22/2024 11:30 AM CDT Orders Only [facility] [address] [place] [address] 09/14/2024 11:45 AM CDT Office Visit [facility] [address] [place] [address] [address] [place] [address] Benigno Hoffman MD Aftercare following joint replacement surgery, unspecified joint (Primary Dx); Delayed surgical wound healing, initial encounter; Postoperative abscess involving suture 09/07/2024 11:45 AM CDT Office Visit [facility] [address] [place] [address] [address] [place] [address] Diana Holly NP Aftercare following right hip joint replacement surgery (Primary Dx) 09/06/2024 10:15 AM CDT Orders Only [facility] [address] [place] [address] 09/01/2024 2:30 PM CDT Orders Only [facility] [address] [place] [address] 08/25/2024 3:00 PM CDT Orders Only [facility] [address] [place] [address] 08/19/2024 3:00 PM CDT Orders Only [facility] [address] [place] [address] 08/12/2024 3:00 PM CDT Orders Only [facility] [address] [place] [address] Aftercare following right hip joint replacement surgery 08/12/2024 11:30 AM CDT Lab [address] [address] Aftercare following right hip joint replacement surgery 08/12/2024 10:30 AM CDT Office Visit [facility] [address] [place] [address] [address] [place] [address] Diana Holly NP Aftercare following right hip joint replacement surgery (Primary Dx) 08/12/2024 7:43 AM CDT - 08/12/2024 11:59 PM CDT Hospital Encounter [facility] [address] [place] [address] [address] [place] [address] Discharge Disposition: Discharge to home or self care 08/12/2024 Telephone [facility] [address] [place] [address] [address] [place] [address] Benigno Hoffman MD 08/12/2024 Orders Only [facility] [address] [place] [address] [address] [place] [address] Benigno Hoffman MD Aftercare following right hip joint replacement surgery (Primary Dx) 08/12/2024 Orders Only [facility] [address] [place] [address] [address] [place] [address] Benigno Hoffman MD Aftercare following right hip joint replacement surgery (Primary Dx) from Last 3 Months Immunizations Immunization Administration Dates Next Due Hep A, Adult 04/14/2018,05/18/2015 Influenza, Quadrivalent, Rec ombinant, Egg Free, Preservative Free, Intramuscular 12/30/2019 Influenza, Quadrivalent, Spl it, Preservative Free, Intramuscular 11/18/2017 Influenza, Trivalent, High D ose, Split, Preservative Free, Intramuscular 01/25/2019,11/23/2016,11/22/2016,01/24,01/25/2015 Influenza, Trivalent, IM (MDV) 12/22/2013,2012 Moderna SARS-CoV-2 Monovalen t Vaccination (12+ YRS) 06/12/2020,05/11/2020 Pneumococcal Conjugate PCV 13 06/05/2017 Pneumococcal Polysaccharide PPV23 06/22/2014 Td, adsorbed 03/24/2011 ZOSTER LIVE 03/24/2002 Surgical History Surgery Date Site/Laterality Comments BREAST CYST EXCISION 03/24/1957 - 03/23/1958 Left benign cyst excised BREAST BIOPSY 03/24/1989 - 03/23/1990 Right benign surgical bx, 2 separate times on right side and one on left. BREAST BIOPSY Right BREAST BIOPSY 03/24/1989 - 03/23/1990 Left JOINT REPLACEMENT Bilateral knees Medical History Medical History Date Comments Fibrocystic breast Skin cancer of nose Sleep apnea Anxiety Depression Family History Medical History Relation Name Comments Heart disease Brother 1 Family history of cardiac disorder - (Added by TW Conv) Arthritis Brother 2 Family history of arthritis - (Added by TW Conv) Diabetes Brother 3 Family history of diabetes mellitus - (Added by TW Conv) Cancer Father Family history of malignant neoplasm - (Added by TW Conv) Heart disease Father Family history of cardiac disorder - (Added by TW Conv) Lung disease Father Lung trouble - (Added by TW Conv) Arthritis Mother Family history of arthritis - (Added by TW Conv) Diabetes Mother Family history of diabetes mellitus - (Added by TW Conv) Heart disease Mother Family history of cardiac disorder - (Added by TW Conv) Breast cancer Neg Hx Ovarian cancer Neg Hx Thyroid cancer Neg Hx Relation Name Status Comments Brother 1 Brother 2 Brother 3 Father Mother Social History Tobacco Use Types Packs/Day Years [...] on file Legal Sex Female 7:40 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 Gender Identity Not on file Sexual Orientation Not on file Obstetrics History Para Term AB IAB SAB Ectopic Multiple Livin g Live Births 1 1 1 Date Outcome GA Total Labor Labor/2nd/3rd Weight Sex Type Anes PTL Monique A1 A5 Name Clin Term Last Filed Vital Signs Vital Sign Reading Time Taken Comments Blood Pressure 115/72 10/12/2024 11:48 AM CDT Pulse 77 10/12/2024 11:48 AM CDT Temperature 36.3 C (97.3 F) 06/15/2024 7:22 AM CDT Respiratory Rate 18 06/15/2024 7:22 AM CDT Oxygen Saturation 93% 06/15/2024 7:22 AM CDT Inhaled Oxygen Concentration - - Weight 105.7 kg (233 lb) 10/12/2024 11:48 AM CDT Height 165.1 cm (5' 5) 10/12/2024 11:48 AM CDT Body Mass Index 38.77 10/12/2024 11:48 AM CDT Plan of Treatment Health Maintenance Due Date Last Done Comments Colon Cancer Screening-Colonoscopy 1950 Depression Screening 1950 Hepatitis C Screening 1950 Hepatitis B Screening 07/17/1967 Zoster Vaccine (2 of 3) 05/19/2002 03/24/2002 DTaP/Tdap/Td Vaccine (1 - Tdap) 03/25/2011 2 Well Visit 65+ 2014 Pneumococcal vaccine 65+ (3 of 3 - PCV20 or PCV21) 06/05/2022 06/05/2017, 06/22/2014 Osteoporosis Screening-Bone Density Scan 09/21/2022 09/21/2020, 06/12/2017, 06/12/2017 Covid-19 Vaccine (3 - 2023-2 5 season) 2023 06/12/2020, 05/11/2020 Influenza Vaccine (#1) 2024 , 01/25/2019, 11/18/2017, Additional history exists Fall Risk Assessment 06/15/2025 06/15/2024, 05/05/19 Breast Cancer Screening-Mammogram Discontinued 01/08/2023, 12/03/2021, 09/21/2020, Additional history exists Medical Devices Implanted Type Area Telephone Clerk Telegraph Office Device Identifier Shelf Expiration Date Model / Serial / Lot Joint Bilater al: Knee [employer] [place] 52mm 36mm Hip Neutral Liner Acetabular Altrx Sterile Latex Free [id number] - [id number] Implanted:Qty: 1 on 06/14/2024 by Benigno Hoffman MD at [facility] Right: Hip [employer] [id number] 02/20/2029 [id number] / / [id number] [employer] [place] 52mm Sector Hip Shell Acetabular Gription Sterile Latex Free [id number] - [id number] Implanted:Qty: 1 on 06/14/2024 by Benigno Hoffman MD at [facility] Right: Hip [employer] [id number] 03/23/2034 [id number] / / [id number] [employer] [place] 6.5mm 25mm Acetabular Cancellous Screw Bone Sterile 1217-25-500 - [id number] Implanted:Qty: 1 on 06/14/2024 by Benigno Hoffman MD at [facility] Right: Hip [employer] 09/20/2033 1217-25-500 / / [employer] [place] 6.5mm 25mm Acetabular Cancellous Screw Bone Sterile 1217-25-500 - [id number] Implanted:Qty: 1 on 06/14/2024 by Benigno Hoffman MD at [facility] Right: Hip [employer] [id number] 03/23/2034 1217-25-500 / / [id number] [employer] Actis Collar Hip 7 High Offset Stem Femoral [id number] - [id number] Implanted:Qty: 1 on 06/14/2024 by Benigno Hoffman MD at [facility] Right: Hip [employer] [id number] 04/23/2034 [id number] / / [id number] [employer] Articul/Segundo 36mm Cementless Hip +1.5mm 03/06 Taper Head Femoral Latex Free [id number] - [id number] Implanted:Qty: 1 on 06/14/2024 by Benigno Hoffman MD at [facility] Right: Hip [employer] [id number] 03/23/2029 [id number] / / [id number] Procedures Procedure Name Priority Date/Time Associated Diagnosis Comments CRP (ACUTE PHASE) STAT 08/12/2024 11: 34 AM CDT Aftercare following right hip joint replacement surgery ERYTHROCYTE SEDIMENTATION RATE STAT 08/12/2024 11:34 AM CDT Aftercare following right hip joint replacement surgery XR HIP RIGHT 2 OR 3 VIEWS Schedule Routine, Read Routine (OP Routine) 08/12/2024 10:24 AM CDT Aftercare following right hip joint replacement surgery SCREENING MAMMOGRAM BILATERAL W ELIJAH Schedule Routine, Read Routine (OP Routine) 01/08/2023 2:25 PM CDT Screening mammogram, encounter for DEXA AXIAL SKELETON BONE DENSITY 1 OR MORE SITES Schedule Routine, Read Routine (OP Routine) 09/21/2020 11:07 AM CDT Other specified disorders of bone density and structure, unspecified site from Last 3 Months or Most Recently Relevant to Health Maintenance Results * Erythrocyte sedimentation rate (08/12/2024 11:34 AM CDT) Erythrocyte sedimentation rate 29 1 - 30 mm/hr Blood 08/12/2024 11:3 4 AM CDT 08/12/2024 11:37 AM CDT Benigno Hoffman MD LAB BLOOD ORDERABLES Fin al Result Performing Organization Address City/[facility]/ZIP Co de Phone Number ERICKSON PAUL ([place]) [address] [place] [address] [place] [address] * (ABNORMAL) CRP (acute phase) (08/12/2024 11:34 AM CDT) CRP 30.9(H) <=10.0 mg/L Blood 08/12/2024 11:3 4 AM CDT 08/12/2024 11:37 AM CDT Benigno Hoffman MD LAB BLOOD ORDERABLES Fin al Result Performing Organization Address City/[facility] Co de Phone Number ERICKSON PAUL ([place]) [address] [place] [address] [place] [address] * XR Hip Right 2 or 3 Views (08/12/2024 10:24 AM CDT) Anatomical Region Laterality Modality Lower Extremities, Hip, Pelvis Right D igital Radiography Narrative 08/12/2024 1:59 PM CDT Radiographs taken of the right hip today reveal a total hip arthroplasty in appropriate position with no interval change from the time of surgery. Diana Holly MOVIE SHOT CAMERA OPERATOR IMG XR PROCEDURES Final Result * Screening Mammogram Bilateral W Elijah (01/08/2023 2:25 PM CDT) Anatomical Region Laterality Modality Breast Bilateral Mammography 01/08/2023 2:36 PM CDT Impressions 01/08/2023 2:36 PM CDT There is no mammographic evidence of malignancy. A 1 year screening mammogram is recommended. BI-RADS: 2 - Benign. The patient has been or will be contacted. The patient will be entered into a reminder system with a target due date of 1 year for her next mammogram. Electronically signed by: Senthil Leahy M.D. Narrative 01/08/2023 2:36 PM CDT EXAMINATION: SCREENING MAMMOGRAM BILATERAL W ELIJAH ORDERING HEALTHCARE PROVIDER: SELF SCREENING MAMMOGRAM HISTORY: Routine screening mammography. COMPARISON: 12/03/2021, 09/21/2020, 09/08/2018, 09/01/2017, 06/07/2016 TECHNIQUE: CC and MLO views of the bilateral breasts were obtained with digital technique using breast tomosynthesis with C view. Computer aided detection was utilized. FINDINGS: DENSITY: There are scattered fibroglandular elements in the bilateral breasts. BREASTS: There are benign bilateral breast calcifications. There is no new suspicious finding in either breast on mammogram. us Self Screening Mammogram IMG MAMMO PROCEDURES Fi nal Result * Dexa Axial Skeleton Bone Density 1 or 2 Site (09/21/2020 11:07 AM CDT) Anatomical Region Laterality Modality Body N/A Other 09/21/2020 4:01 PM CDT Narrative 09/21/2020 4:02 PM CDT EXAM DESCRIPTION: DEXA AXIAL SKELETON BONE DENSITY 1 OR MORE SITES REASON FOR STUDY: 70 y/o year old F with given history of screening. Telephone Clerk Telegraph Office/Model: [employer] (S/N [id number]) CLINICAL INFORMATION: Current height: 66.5 inches Maximum height: 66.5 inches Weight: 245 pounds Risk factors: Rheumatoid arthritis COMPARISON: None available. FINDINGS: AP LUMBAR SPINE L1-L4: Total BMD is 1.131 g/cm2 T-score is 0.8 LEFT HIP: Total BMD is 0.888 g/cm2 T-score is -0.4 Femoral neck BMD is 0.618 g/cm2 T-score is -2.1 IMPRESSION: Low bone mass. Fracture risk assessment (FRAX): 10 year risk for a major osteoporotic fracture is 14 % 10 year risk for a hip fracture is 3.0 % The FRAX tool has not been validated in patients currently or previously treated with pharmacotherapy for osteoporosis. In such patients, clinical judgement must be exercised in interpreting FRAX scores as the fracture risk may be overestimated. REFERENCE: Bone mineral density: Normal (T-score above or [...] to Prevention and Treatment of Osteoporosis (http://www.nof.org/professionals/clinical-guidelines) THIS IS AN ELECTRONICALLY VERIFIED FINAL REPORT 09/21/2020 4:02 PM - Electronically signed by Lisa Heath M.D. TB: TB Report ID: [id number] Reading Location: [facility] Procedure Note Lisa Heath MD - 09/21/2020 EXAM DESCRIPTION: DEXA AXIAL SKELETON BONE DENSITY 1 OR MORE SITES REASON FOR STUDY: 70 y/o year old F with given history ofscreening. Telephone Clerk Telegraph Office/Model: [employer] (S/N [id number]) CLINICAL INFORMATION: Current height: 66.5 inches Maximum height: 66.5 inches Weight: 245 pounds Risk factors: Rheumatoid arthritis COMPARISON: None available. FINDINGS: AP LUMBAR SPINE L1-L4: Total BMD is 1.131 g/cm2 T-score is 0.8 LEFT HIP: Total BMD is 0.888 g/cm2 T-score is -0.4 Femoral neck BMD is 0.618 g/cm2 T-score is -2.1 IMPRESSION: Low bone mass. Fracture risk assessment (FRAX): 10 year risk for a major osteoporotic fracture is 14 % 10 year risk for a hip fracture is 3.0 % The FRAX tool has not been validated in patients currently or previously treated with pharmacotherapy for osteoporosis. In such patients, clinical judgement must be exercised in interpreting FRAX scores as the fracturerisk may be overestimated. REFERENCE: Bone mineral density: Normal (T-score above or = -1.0) Low bone mass (T-score between -1.0 and -2.5) replaces thepreviously used term osteopenia Osteoporosis (T-score = or below -2.5) Medical evaluation for secondary causes of low bone mineral density may be appropriate. FRAX is a World Health Organization validated fracture risk assessmenttool that calculates a person's 10 year probability of a major osteoporosisrelated fracture and hip fracture. According to the National OsteoporosisFoundation guidelines, postmenopausal women and men age 50 or older with low bonemass and a 10 year probability of a major osteoporosis related fracture = or greater than 20% or a 10 year probability of a hip fracture = or greaterthan 3% should be considered for treatment. For further information, including treatment recommendations, please referto the 2013 ISCD Official Positions (http://www.iscd.org) and the NOF's Clinician's Guide to Prevention and Treatment of Osteoporosis (http://www.nof.org/professionals/clinical-guidelines) THIS IS AN ELECTRONICALLY VERIFIED FINAL REPORT 09/21/2020 4:02 PM - Electronically signed by Lisa Heath M.D. TB: TB Report ID: [id number] Reading Location: [facility] Champ Spencer MD [facility] [place] ES Final Result from Last 3 Months or Most Recently Relevant to Health Maintenance Insurance MEDICARE COMMERCIAL GENERIC MEDICARE SUPPLEMENT MEDICARE [facility] MEDICARE SUPPLEMENT Advance Directives For more information, please contact: [phone] * Full Code (Latest Code Status on File) Date Activated Date Inactivated Comments 06/14/2024 12:46 PM 06/15/2024 4:22 PM Care Teams Patternmaker Apprentice Wood Relationship Specialty Start Date End Date Fatou Mcgee MD PCP - General 08/27/18 Misael Wilson, OT Occupational Therapist Occupational Therapy 05/05/24 Benigno Hoffman MD [address] [place] [address] [address] [place] [address] Surgeon Orthopedic Surgery 05/14/24
--- OUTSIDE RECORDS SUMMARY | 2024-10-13 00:36 | XMS_ITS ---
Author Organization [facility] Address [address] [place] [address] Care Team Providers Care Airborne Sensor Specialist Name Role Phone Emeka Torres [phone] REASON FOR VISIT InBody Follow-up Encounters Encounter Location Date Provider Diagnosis [facility] ([address]) [address] [place] [phone] 08/19/2023 Emeka Torres Plan Of Treatment No Information Progress Notes * Howard MARSHALLShayyB:1950 ( 74 yo F)Acc No.[id number]:08/19/2023 InBody Follow-up Patient: Rosa MCKAY Provider: Zaid Torres MD :1950 A ge:73 Y S ex:Female Date:08/19/2023 Address:[address] [place], [place] [id number] Subjective: * Chief Complaints: * 1 . InBody Follow-up. * Medical History: Objective: * Vitals: Assessment: Plan: * Treatment: * Billing Information: * Visit Code: * Procedure Codes: * Electronic signature of Alfredo Torres MD, FAAAAI on 10/13/2024 at 12:36 AM CDT Sign off status: Pending * Provider: Zaid Torres MD Date: 08/19/2023 Generated for Printi ng/Faxing/eTransmitting on: 10/13/2024 12:36 AM CDT
--- OUTSIDE RECORDS SUMMARY | 2024-10-13 00:36 | XMS_ITS | Patient Health Record ---
Author Organization [facility] [place] ([address]) Address [address] [address] Support Name Relationship Address Phone Rosa Newell Guarantor Unknown [phone] Reason For Referral No Information Problems Problem Type SNOMED Code ICD Code Onset Dates Problem Status W/U Status Risk Notes Problem Morbid obesity (disorder) (144416301) Morbid (severe) obesity due to excess calories (E66.01) Active confirmed Problem Chronic fatigue syndrome (disorder) (34964931) Chronic fatigue, unspecified (R53.82) Active confirmed Plan Of Treatment No Information
--- OUTSIDE RECORDS SUMMARY | 2024-10-13 00:36 | XMS_ITS | Referral Summary ---
Author Organization [facility] Address [address] [place] [address] Care Team Providers Care Cataract Lens Generator Name Role Phone Fatou Mcgee MD Primary Care Provider + Misael Wilson OT Unavailable Unavailable Benigno Hoffman MD Unavailable [phone] Encounters Date Type Department Care Team Description 10/12/2024 11:45 AM CDT Office Visit [facility] Orthopedics and Sports Medicine [address] [place] [address] [address] [place] [address] Benigno Hoffman MD Pre-operative exam (Primary Dx); Primary osteoarthritis of left hip; Aftercare following joint replacement surgery, unspecified joint 10/06/2024 11:30 AM CDT Orders Only [facility] [address] [place] [address] 09/29/2024 1:00 PM CDT Orders Only [facility] [address] [place] [address] 09/22/2024 11:30 AM CDT Orders Only [facility] [address] [place] [address] 09/14/2024 11:45 AM CDT Office Visit [facility] Orthopedics and Sports Medicine [address] [place] [address] [address] [place] [address] Benigno Hoffman MD Aftercare following joint replacement surgery, unspecified joint (Primary Dx); Delayed surgical wound healing, initial encounter; Postoperative abscess involving suture 09/07/2024 11:45 AM CDT Office Visit [facility] Orthopedics and Sports Medicine [address] [facility] [address] [place] [address] Diana Holly NP Aftercare following right hip joint replacement surgery (Primary Dx) 09/06/2024 10:15 AM CDT Orders Only [facility] [address] [place] [address] 09/01/2024 2:30 PM CDT Orders Only [facility] [address] [place] [address] 08/25/2024 3:00 PM CDT Orders Only [facility] [address] [place] [address] 08/19/2024 3:00 PM CDT Orders Only [facility] [address] [place] [address] 08/12/2024 3:00 PM CDT Orders Only [facility] [address] [place] [address] Aftercare following right hip joint replacement surgery 08/12/2024 11:30 AM CDT Lab [address] [address] Aftercare following right hip joint replacement surgery 08/12/2024 Telephone [facility] Sports Medicine [address] [facility] [address] [place] [address] Benigno Hoffman MD 08/12/2024 Orders Only [facility]ics [facility] Medicine [address] [place] [address] [address] [place] [address] Benigno Hoffman MD Aftercare following right hip joint replacement surgery (Primary Dx) 08/12/2024 Orders Only [facility]ics [facility] Sports Medicine [address] [place] [address] [address] [place] [address] Benigno Hoffman MD Aftercare following right hip joint replacement surgery (Primary Dx) 08/12/2024 7:43 AM CDT - 08/12/2024 11:59 PM CDT Hospital Encounter [facility] Sports Medicine [address] [place] [address] [address] [place] [address] Discharge Disposition: Discharge to home or self care 08/12/2024 10:30 AM CDT Office Visit [facility]ics [facility] Sports Medicine [address] [place] [address] [address] [place] [address] Diana Holly NP Aftercare following right hip joint replacement surgery (Primary Dx) from Last 3 Months Allergies No known active allergies Medications gabapentin [...] 05/22 Status post bilateral knee replacements 06/06/19 18 Arthralgia of hip 02/26/2016 Osteopenia 05/18/2015 Surgical follow-up care 09/26/2014 Knee pain 07/22/2014 Resolved Problems Problem Noted Date Diagnosed Date Resolved Date Primary osteoarthritis of right hip 05/05/2024 07/08/2024 Immunizations Immunization Administration Dates Next Due Hep [...] 06/22/2014 Td, adsorbed 03/24/2011 ZOSTER LIVE 03/24/2002 Social History Tobacco Use Types Packs/Day [...] on file 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 Gender Identity Not on file Sexual [...] 10/12/2024 11:48 AM CDT Plan of Treatment Not on file Medical Devices Implanted Type Area Embroidery Specialist Device Identifier Shelf Expiration Date Model / Serial / Lot Joint Bilater al: Knee [employer] Robinson 52mm 36mm Hip Neutral Liner Acetabular Altrx Sterile Latex Free [id number] - [id number] Implanted:Qty: 1 on 06/14/2024 by Benigno Hoffman MD at [facility] Right: Hip [employer] [id number] 02/20/2029 [id number] / / [id number] [employer] Robinson 52mm Sector Hip Shell Acetabular Gription Sterile Latex Free [id number] - [id number] Implanted:Qty: 1 on 06/14/2024 by Benigno Hoffman MD at [facility] Right: Hip [employer] [id number] 03/23/2034 [id number] / / [id number] [employer] Robinson 6.5mm 25mm Acetabular Cancellous Screw Bone Sterile 1217-25-500 - [id number] Implanted:Qty: 1 on 06/14/2024 by Benigno Hoffman MD at [facility] Right: Hip [employer] 09/20/2033 1217--500 / / [employer] Robinson 6.5mm 25mm Acetabular Cancellous Screw Bone Sterile 1217--500 - [id number] Implanted:Qty: 1 on 06/14/2024 by Benigno Hoffman MD at [facility] Right: Hip [employer] [id number] 03/23/2034 1217-25-500 / / [id number] [employer] Actis Collar Hip 7 High Offset Stem Femoral [id number] - [id number] Implanted:Qty: 1 on 06/14/2024 by Benigno Hoffman MD at [facility] Right: Hip [employer] [id number] 04/23/2034 [id number] / / [id number] [employer] Articul/Segundo 36mm Cementless Hip +1.5mm 03/06 Taper Head Femoral Latex Free [id number] - [id number] Implanted:Qty: 1 on 06/14/2024 by Benigno Hoffman MD at [facility] Right: Hip [employer] [id number] 03/23/2029 [id number] / / [id number] Procedures Procedure Name Priority Date/Time Associated Diagnosis [...] ORDERABLES Fin al Result Performing Organization Address City/[facility] Co de Phone Number [facility] [place]) [address] [facility] [email or web address] [address] * (ABNORMAL) CRP (acute phase) (08/12/2024 11:34 AM CDT) CRP 30.9(H) <=10.0 mg/L Blood 08/12/2024 11:3 4 AM CDT 08/12/2024 11:37 AM CDT Benigno Hoffman MD LAB BLOOD ORDERABLES Fin al Result Performing Organization Address [facility] de Phone Number [facility] ([place]) 1 [facility] [place] [address] * XR Hip Right 2 or 3 Views (08/12/2024 10:24 AM CDT) Anatomical Region Laterality Modality Lower Extremities, Hip, Pelvis Right D igital Radiography Narrative 08/12/2024 1:59 PM CDT Radiographs taken of the right hip today reveal a total hip arthroplasty in appropriate position with no interval change from the time of surgery. Diana Holly DIVING INSTRUCTOR IMG XR PROCEDURES Final Result * Screening [...] old F with given history of screening. Embroidery Specialist/Model: [employer] Discovery SL (S/N [id number]) CLINICAL INFORMATION: Current height: 66.5 inches Maximum [...] Lisa Heath M.D. TB: TB Report ID: [id number] Reading Location: [facility] Procedure Note Lisa Heath MD - 09/21/2020 EXAM DESCRIPTION: DEXA AXIAL SKELETON BONE DENSITY 1 OR MORE SITES REASON FOR STUDY: 70 y/o year old F with given history ofscreening. Embroidery Specialist/Model: [place] Dentist (S/N [id number]) CLINICAL INFORMATION: Current height: 66.5 inches Maximum [...] Lisa Heath M.D. TB: TB Report ID: [id number] Reading Location: [facility] Champ Spencer MD IMG DXA PROCEDUR ES Final Result from Last 3 Months or Most Recently Relevant to Health Maintenance Insurance MEDICARE COMMERCIAL GENERIC AAVLife CROSS MEDICARE SUPPLEMENT MEDICARE ContentRealtime MEDICARE SUPPLEMENT Advance Directives For more information, please contact: [phone] * Full Code (Latest Code Status on File) Date Activated Date Inactivated Comments 06/14/2024 12:46 PM 06/15/2024 4:22 PM Care Teams Cataract Lens Generator Relationship Specialty Start Date End Date Fatou Mcgee MD PCP - General 08/27/18 Misael Wilson OT Occupational Therapist Occupational Therapy 05/05/24 Benigno Hoffman MD [address] [place] [address] [address] [place] [address] Surgeon Orthopedic Surgery 05/14/24
--- OUTSIDE RECORDS SUMMARY | 2024-10-13 00:36 | XMS_ITS ---
Author Organization Pending Sale To [facility] ([address]) Address [address] [place] [phone] Care Team Providers Care Trim Setter Helper Name Role Phone Emeka Torres [phone] REASON FOR VISIT [facility], interested in peptide therapy,, on Tirzepatide, no side effects, appetite suppression much better, Desired weight loss: 100 lbs, -2.4 lbs since last visit, -3.6 lbs sincebeginning weight loss program, No history MTC or MEN2 or pancreatitis, Concerned about future DM and OA Vital Signs Height 64.8 in 08/11/2023 Weight 259.4 lbs 08/11/2023 BMI 43.43 kg/m2 08/11/2023 Encounters Encounter Location Date Provider Diagnosis [facility]ending [facility] To [facility] ([address]) [address] [place] [phone] 08/11/2023 Emeka Torres Morbid (severe) obesity due to excess calories E66.01 ; Chronic fatigue, unspecified R53.82 ; Other fatigue R53.83 and Other malaise R53.81 Assessments Encounter Date Diagnosis (ICD Code) Assessment Notes Treatment Notes Treatment Clinical Notes Section Notes 08/11/2023 Morbid (severe) obesity due to excess calories (ICD-10 - E66.01) 08/11/2023 Chronic fatigue, unspecified (ICD-10 - R53.82) 08/11/2023 Other fatigue (ICD-10 - R53.83) 08/11/2023 Other malaise (ICD-10 - R53.81) Plan Of Treatment Next Appt Details Follow Up: 1 Week, Reason: G LP-1 Agonist Administration Procedure Notes * Category Sub-Category Detail Notes [facility]: Weight Management tirzepatide Indication: weig ht loss Concentration: 10 mg/mL Volume Administered: 0.35 mL Dose Administered: 3.5 mg Route: SQ Location: Left abdomen Frequency: weekly Lot Number/Expiration: Medication Source: [facility] Adverse Reaction: None Progress Notes * Howard MARSHALLaDOB:1950 ( 74 yo F)Acc No.[id number]:08/11/2023 Weight Loss Patient: Rosa MCKAY Provider: Zaid Torres MD :1950 A ge:73 Y S ex:Female Date:08/11/2023 Address:[address] [place], [place] [id number] Subjective: * Chief Complaints: * 1 . [facility], interested in peptide therapy,, on Tirzepatide, no side effects, appetite suppression much better. 2. Desired weight loss: 100 lbs, - 2.4 lbs since last visit, -3.6 lbs since beginning weight loss program. 3. No history MTC or MEN2 or pancreatitis. 4. Concerned about future DM and OA. * Medical History: Objective: * Vitals: H t: 64.8 in, Wt: 259.4 lbs, BMI:43.43Index. Assessment: * Assessment: 1. M orbid (severe) obesity due to excess calories - E66.01 (Primary) 2 . C hronic fatigue, unspecified - R53.82 3 . O ther fatigue - R53.83 ?4. O ther malaise - R53.81 Plan: * Treatment: * Procedures: [facility]: Weight Management: tirzepatide I ndication w eight loss C oncentration 1 0 mg/mL V olume Administered 0 .35 mL D ose Administered 3 .5 mg R oute S Q L ocation L eft abdomen F requency w eekly L ot Number/Expiration 0 M edication Source [facility] A dverse Reaction N one * Follow Up: 1 Week (Reason: GLP-1 Agonist Administration) * Billing Information: * Visit Code: * Procedure Codes: 66661 InBody Consult. * Electronic signature of Patjimmie Torres MD, FAAAAI on 10/13/2024 at 12:36 AM CDT Sign off status: Pending * Provider: Zaid Torres MD Date: 0 08/11/2023 Generated for Rush toledo/Mati/Tiago on: 0 10/13/2024 12:36 AM CDT
--- OUTSIDE RECORDS SUMMARY | 2024-10-13 00:36 | XMS_ITS | Encounter Summary ---
Author Organization [facility] Address [address] [place] [address] Care Team Providers Care Refinery Operator Coking Name Role Phone Fatou Mcgee MD Primary Care Provider + Misael Wilson OT Unavailable Unavailable Benigno Hoffman MD Unavailable [phone] Reason for Visit * Reason Onset Date Comments Scheduling Appointments 09/20/2020 Confirmi ng mammogram appt Encounter Details Date Type Department Care Team (Late st Contact Info) Description 09/20/2020 Telephone [facility] [address] [place] [address] Ligia Beauchamp RT Scheduling Appointments (Confirming mammogram appt) Social History Tobacco Use Types Packs/Day Years Used Date Smoking Tobacco: Former Comments No Sex and Gender Information Value Date Recorded Sex Assigned at Not on file Legal Sex Female 7:40 PM Gender Identity Not on file Sexual Orientation Not on file documented as of this encounter Plan of Treatment Not on file documented as of this encounter Visit Diagnoses Not on filedocumented in this encounter Care Teams Refinery Operator Coking Relationship Specialty Start Date End Date Fatou Mcgee MD PCP - General 08/27/18 Misael Wilson OT Occupational Therapist Occupational Therapy 05/05/24 Benigno Hoffman MD [address] [place] [address] [address] [place] [address] Surgeon Orthopedic Surgery 05/14/24 documented as of this encounter
--- OUTSIDE RECORDS SUMMARY | 2024-10-13 00:36 | XMS_ITS ---
Author Organization [facility] ([address]) Address [address] [place] [phone] Care Team Providers Care Chemistry Lab Instructor Name Role Phone Emeka Torres [phone] REASON FOR VISIT [facility], interested in peptide therapy,, on Tirzepatide, no side effects, appetite suppression much better, Desired weight loss: 100 lbs, -2.4 lbs since last visit, -3.6 lbs sincebeginning weight loss program, No history MTC or MEN2 or pancreatitis, Concerned about future DM and OA Vital Signs Height 64.8 in 08/19/2023 Weight 262.2 lbs 08/19/2023 BMI 43.9 kg/m2 08/19/2023 Encounters Encounter Location Date Provider Diagnosis [facility] ([address]) [address] [place] [phone] 08/19/2023 Emeka Torres Morbid (severe) obesity due to excess calories E66.01 ; Chronic fatigue, unspecified R53.82 ; Other fatigue R53.83 and Other malaise R53.81 Assessments Encounter Date Diagnosis (ICD Code) Assessment Notes Treatment Notes Treatment Clinical Notes Section Notes 08/19/2023 Morbid (severe) obesity due to excess calories (ICD-10 - E66.01) 08/19/2023 Chronic fatigue, unspecified (ICD-10 - R53.82) 08/19/2023 Other fatigue (ICD-10 - R53.83) 08/19/2023 Other malaise (ICD-10 - R53.81) Plan Of Treatment Next Appt Details Follow Up: 1 Week, Reason: G LP-1 Agonist Administration Procedure Notes * Category Sub-Category Detail Notes [facility] Weight Management tirzepatide Indication: weig ht loss Concentration: 10 mg/mL Volume Administered: 0.35 mL Dose Administered: 3.5 mg Route: SQ Location: Left abdomen Frequency: weekly Lot Number/Expiration: Medication Source: [employer] Adverse Reaction: None Progress Notes * Howard MARSHALLaDOB:1950 ( 74 yo F)Acc No.[id number]:08/19/2023 Weight Loss Patient: Rosa CMKAY Provider: Zaid Torres MD :1950 A ge:73 Y S ex:Female Date:08/19/2023 Address:[address] [place], [place] [id number] Subjective: * Chief Complaints: * 1 . [...] * Vitals: H t: 64.8 in, Wt: 262.2 lbs, BMI:43.9Index. Assessment: * Assessment: 1. M orbid (severe) [...] ot Number/Expiration 0 M edication Source H [facility] A dverse Reaction N one * Follow Up: 1 Week (Reason: GLP-1 Agonist Administration) * Billing Information: * Visit Code: * Procedure Codes: * Electronic signature of Alfredo Torres MD, FAAAAI on 10/13/2024 at 12:36 AM CDT Sign off status: Pending * Provider: Zaid Torres MD Date: 0 08/19/2023 Generated for Rush to[place]o/Mati/Tiago on: 0 10/13/2024 12:36 AM CDT
[2024-11-02 15:21] VITALS: BMI 38.2
[2024-11-16] VITALS (12 sets, daily range): BP systolic 100–143; BP diastolic 24–68; PULSE 40–62; RESP 12–20; TEMP 36.3; O2SAT 93–100; BMI 39.2
[2024-11-16] MEDS: KETOROLAC 15 MG/ML VIAL (*BKC) IV PUSH (08:39)
--- NOTE | 2024-11-16 09:12 | WPDHPUPDATE1 ---
History and Physical Update Update Date/Time: 11/16/24 09:12 History and Physical has been reviewed, including an updated exam of the patient. There are NO changes in the patient's condition. Risks, benefits, and alternatives have been discussed and questions answered. Patient agrees to proceed with procedure.
--- NOTE | 2024-11-16 09:12 | PM.IMHP ---
H&P: HPI History of Present Illness Date/Time: 11/16/24 09:12 Chief Complaint: incarcerated umbilical hernia Narrative: this is a 74-year-old woman who presents for incarcerated umbilical hernia repair. She reports no changes since last seen in the office. Review of Systems Review of Systems: All systems reviewed & are unremarkable except as noted in HPI and below Constitutional: Constitutional: Denies chills, Denies fever(s), Denies headache(s) and Denies weight loss Eyes: Eyes: Denies change in vision ENT: Denies dizziness, Denies headache(s), Denies neck mass and Denies throat swelling Cardiovascular: Cardiovascular: Denies chest pain, Denies lightheadedness and Denies dyspnea Respiratory: Respiratory: Denies cough, Denies dyspnea and Denies wheezing Gastrointestinal: Gastrointestinal: Denies abdominal pain, Denies change in bowel habits, Denies nausea and Denies vomiting Genitourinary: Genitourinary: Denies hematuria and Denies dysuria Musculoskeletal: Musculoskeletal: Reports as per HPI Integumentary/Breasts: Skin/Breast: Reports as per HPI Neurologic: Denies dizziness and Denies headache(s) Allergic/Immunologic: Allergic/Immunologic: Denies throat swelling and Denies wheezing PMFSH Past Medical History Medical History Arthritis Normal colonoscopy 11.21.20 Positive colorectal cancer screening using Cologuard test 11.21.20 colonoscopy negative Hip pain Bilateral sacroiliitis Depression Hematuria, unspecified Hernia Surgical History Surgical History History of hip surgery 2024 Status post breast lumpectomy 1958 and 1994 History of total knee arthroplasty (~2014) bilateral Family History Family History Sibling Diabetes mellitus Family history of obesity Family history of arthritis Family history of lung cancer Family history of attention deficit hyperactivity disorder (ADHD) Mother Diabetes mellitus Family history of obesity Family history of anemia Family history of arthritis Family history of kidney disease Father Family history of obesity Family history of chronic obstructive pulmonary disease Family history of congestive heart failure Social History Social History Smoking packs per day: 1 Smoking cigarettes per day: 20.0 Years smoked: 40 Smoking pack-years: 40.00 Smoking status: Former smoker Tobacco type: cigarettes Smoking end date: 03/24/12 Alcohol intake: never Substance use: never Substance use type: does not use Do You Feel Safe in your Home?: Yes Current Housing: Decline to Answer Concerned About Future Housing: Decline to Answer Difficulty Paying Gas/Electric Bills: Decline to Answer Difficulty Paying for Meds: Decline to Answer Currently Unemployed: Decline to Answer Education: Decline to Answer Difficulty w/ Childcare or Family Care: Decline to Answer Living arrangements: alone Gender identity (if verbalized by the patient): Female Sexual Orientation (if Verbalized by the Patient): Straight or Heterosexual Spiritual care concerns: No Meds Home Medications and Allergies Home Medications ?Medication ?Instructions ?Recorded ?Confirmed ?Type acetaminophen 500 mg capsule 1,000 mg PO Q6H PRN Pain 07/15/22 11/16/24 History calcium carbonate (Calcium 600) 600 mg PO BID 05/16/23 10/04/24 History cholecalciferol (vitamin D3) 50 50 mcg PO DAILY 05/16/23 10/04/24 History mcg (2,000 unit) capsule oxybutynin chloride 5 mg 5 mg PO DAILY #90 tabs 04/30/24 10/04/24 Rx tablet,extended release 24 hr celecoxib 100 mg capsule See Rx Instructions .Route 07/09/24 11/16/24 Rx .COMPLEX #180 caps hydrocodone 5 mg-acetaminophen 325 1 tablet PO BID PRN pain #60 tabs 08/17/24 10/04/24 Rx mg tablet amoxicillin 500 mg capsule 500 mg PO .COMPLEX #4 caps 09/29/24 10/04/24 Rx gabapentin 300 mg capsule 300 mg PO BID #180 caps 10/13/24 11/02/24 Rx zolpidem 10 mg tablet 10 mg PO QHS PRN sleep #30 tabs 10/25/24 11/02/24 Rx tirzepatide (weight loss) 12.5 12.5 mg (0.5 mL) subcut WEEKLY #2 11/02/24 11/16/24 Rx mg/0.5 mL subcutaneous solution mL Held on 11/02/24. Instructions: Order Change Allergies Allergy/AdvReac Type Severity Reaction Status Date / Time suture AdvReac wound Verified 11/16/24 07:44 breakdown from allergic reaction to absorbable sutures Vital Signs Vital Signs - 24 hr 11/16/24 07:30 Temperature 97.4 F L Pulse Rate 56 L Respiratory Rate 16 Blood Pressure 117/59 L Pulse Oximetry 100 Exam Const: General: no acute distress and alert Orientation/consciousness: patient oriented x3 HENMT: Head: normocephalic and atraumatic Ears: hearing grossly normal bilaterally Face/Nose/Sinus: Normal nares present Mouth: Yes Normal oral and palatal mucosa present Eyes: Periorbital: periorbital findings normal Sclera: sclerae normal EOM: EOMs intact bilaterally Neck: Neck: normal visual inspection, no lymphadenopathy and trachea midline Chest: Chest palpation & inspection: normal inspection of the chest Resp: Effort & Inspection: normal respiratory effort Auscultation: clear to auscultation bilaterally Cardio: Jugular venous distension: no JVD Rate: regular rate Rhythm: regular rhythm Heart sounds: S1 normal heart sound present and S2 normal heart sound present Peripheral pulses: Peripheral pulses 2+ throughout GI: Inspection: normal to inspection GI Palp: Yes Soft to palpation, No Tenderness to palpation present (GI), No Guarding due to palpation present (GI), Yes Hernia present umbilical 3-10 cm ( 4 cm incarcerated with omentum) and No Rebound tenderness present Percussion: Yes normal to percussion Auscultation: normal bowel sounds : General: Yes no CVA tenderness Back/Spine/Pelvis: Back: no CVA tenderness Neuro: General: patient oriented x3, no focal motor deficits and CN's II-XI intact bilaterally Cognition (Neuro): normal cognition Speech: normal speech Motor exam (neuro): 5/5 motor strength present throughout Extrem: General: capillary refill normal and no clubbing, cyanosis or edema Assessment and Plan Assessment and plan (1) Incarcerated umbilical hernia: Code(s): K42.0 - Umbilical hernia with obstruction, without gangrene Status: Acute Assessment and Plan: I have recommended laparoscopic incarcerated umbilical hernia repair with mesh, da Edilia assisted. I have discussed the procedure, risks, benefits, and alternatives with the patient. All questions answered. No changes since last seen in office.
--- NOTE | 2024-11-16 09:16 | P.PNAN_ITS ---
Anes - Initial Pre Proc Eval Procedure: Operation Date: 11/16/24 09:30 Proposed Procedures p Laparoscopic Incarcerated Umbilical Hernia Repair with Mesh, Davinci Assisted - Haja Escalante DO Date/Time: 11/16/24 09:16 Surgeon: Haja Escalante DO Pre Op Diagnosis: Incarcerated Umbilical Hernia (4cm) Patient Data Age: 74 Gender: F Height: 1.65 m Weight: 106.9 kg Last Vital Signs Temp 36.3 C L 11/16/24 07:30 Pulse 56 L 11/16/24 07:30 Resp 16 11/16/24 07:30 BP 117/59 L 11/16/24 07:30 Pulse Ox 100 11/16/24 07:30 Allergies Allergy/AdvReac Type Severity Reaction Status Date / Time suture AdvReac wound Verified 11/16/24 07:44 breakdown from allergic reaction to absorbable sutures Home Medications ?Medication ?Instructions ?Recorded ?Confirmed ?Type acetaminophen 500 mg capsule 1,000 mg PO Q6H PRN Pain 07/15/22 11/16/24 History calcium carbonate (Calcium 600) 600 mg PO BID 05/16/23 10/04/24 History cholecalciferol (vitamin D3) 50 50 mcg PO DAILY 10/04/24 History mcg (2,000 unit) capsule oxybutynin chloride 5 mg 5 mg PO DAILY #90 tabs 04/3010/04/24 Rx tablet,extended release 24 hr celecoxib 100 mg capsule See Rx Instructions .Route 0 07/09/24 11/16/24 Rx .COMPLEX #180 caps hydrocodone 5 mg-acetaminophen 325 1 tablet PO BID PRN pain #60 tabs 08/17/24 10/04/24 Rx mg tablet amoxicillin 500 mg capsule 500 mg PO .COMPLEX #4 caps 09/29/24 10/04/24 Rx gabapentin 300 mg capsule 300 mg PO BID #180 caps 09/2211/02/24 Rx zolpidem 10 mg tablet 10 mg PO QHS PRN sleep #30 t abs 10/25/24 11/02/24 Rx tirzepatide (weight loss) 12.5 12.5 mg (0.5 mL) subcut WEEKLY #2 11/02/24 11/16/24 Rx mg/0.5 mL subcutaneous solution mL Held on 11/02/24. Instructions: Order Change Laboratory Tests 11/16/24 07:57 Blood Type A Negative Antibody Screen Pending Patient hx anesthesia problems: none Family hx anesthesia problems: none Results Review: All pre-operative results and documents have been reviewed as part of the pre- operative evaluation. [facility] Past Medical History Medical History Arthritis Normal colonoscopy 11.21.20 Positive colorectal cancer screening using Cologuard test 11.21.20 colonoscopy negative Hip pain Bilateral sacroiliitis Depression Hematuria, unspecified Hernia Surgical History Surgical History History of hip surgery 2024 Status post breast lumpectomy 1958 and 1994 History of total knee arthroplasty (~2014) bilateral Family History Family History Sibling Diabetes mellitus Family history of obesity Family history of arthritis Family history of lung cancer Family history of attention deficit hyperactivity disorder (ADHD) Mother Diabetes mellitus Family history of obesity Family history of anemia Family history of arthritis Family history of kidney disease Father Family history of obesity Family history of chronic obstructive pulmonary disease Family history of congestive heart failure Social History Social History Smoking packs per day: 1 Smoking cigarettes per day: 20.0 Years smoked: 40 Smoking pack-years: 40.00 Smoking status: Former smoker Tobacco type: cigarettes Smoking end date: 03/24/12 Alcohol intake: never Substance use: never Substance use type: does not use Do You Feel Safe in your Home?: Yes Current Housing: Decline to Answer Concerned About Future Housing: Decline to Answer Difficulty Paying Gas/Electric Bills: Decline to Answer Difficulty Paying for Meds: Decline to Answer Currently Unemployed: Decline to Answer Education: Decline to Answer Difficulty w/ Childcare or Family Care: Decline to Answer Living arrangements: alone Gender identity (if verbalized by the patient): Female Sexual Orientation (if Verbalized by the Patient): Straight or Heterosexual Spiritual care concerns: No Anes - Eval Final PreProcedure Day of Procedure 11/16/24 09:16 Patient weight: obese Heart: regular rate and rhythm Lungs: clear to auscultation Airway: Mallampati scale class II Neurological: alert and oriented Last oral intake: >/= 8 hours ASA classification: III Emergent: no Anesthetic plan: proceed Anesthesia type and monitoring: general ETT and standard monitoring Results Review: All pre-operative results and documents have been reviewed as part of the pre- operative evaluation. Informed Consent: The patient's anesthetic plan and its attendant risks and benefits were discussed with the patient/family/POA. Questions were solicited and answers provided to the satisfaction of the patient/family/POA.
[2024-11-16] MEDS: ceFAZolin 2 GM in SODIUM CHLORIDE 0.9% IV 50 ML 100 ML IVPB (09:27)
[2024-11-16] MEDS: BUPIVACAINE/EPINEPHRINE 0.5% 30 ML VIAL INFILTRATE (10:09)
--- NOTE | 2024-11-16 10:54 | S_PTH ---
PATIENT: Rosa Newell LOC: [facility] U#:[id number] AGE/SX: 74/F ROOM: RE11/16/[address]: Haja Escalante DO : 1950 BED: DIS: 11/16/2024 SPEC #: [id number] RECD: 11/16/24 11:48 STATUS: MAGO REQ #: [id number] ALICE: 11/16/24 10:[address]: Haja Escalante DEPT: [facility] Surgical RECD BY: Ashley Penn ENTERED: 11/16/24 11:48 SP TYPE: Surgical OTHR DR: Fatou Mcgee MD Tissues: A - Hernia Sac Procedures: Gross and Microscopic Level 2 Hematoxylin and Eosin Stain
[2024-11-16] MEDS: LACTATED RINGERS 1,000 ML 30 ML IV CONT (11:05)
--- NOTE | 2024-11-16 11:05 | W.PM.PROC2 ---
Procedure Note - Detailed Date of Procedure 11/16/24 Pre-op Diagnosis Incarcerated Umbilical Hernia Post-op Diagnosis Same (3cm incarcerated umbilical hernia) Procedure Performed Laparoscopic 3 cm incarcerated umbilical hernia repair with mesh, da Edilia assisted Surgeon Haja Escalante, DO Anesthesia General and Local (0.5% bupivacaine with epinephrine) Indications This is a 74-year-old woman who presented with a bulge at her umbilicus that had increased in size over time. She is having some discomfort in the area as well. This had been present for several years but has gradually become worse. She no appears to have an umbilical hernia that is incarcerated. Discussions were made with the patient about treatment options and decision was made to proceed with robotic assisted laparoscopic incarcerated umbilical hernia repair with mesh. Findings Robotic assisted laparoscopic 3 cm incarcerated umbilical hernia repair with mesh was performed. The patient was found to have an umbilical hernia incarcerated with a loop of small bowel and omentum. Small bowel appeared healthy and viable, but did not easily reduce until the abdomen was insufflated with CO2. The hernia defect was measured 3 cm. I initially was going to attempt a robotic transabdominal preperitoneal approach, but the preperitoneal plane was difficult to develop and the peritoneum was very thin. I then chose to perform a robotic intraperitoneal onlay mesh technique for repair. The hernia sac and surrounding preperitoneal fat was excised and sent to the lab for pathology. The hernia defect was closed using 1 Stratafix running absorbable suture. A Ventralight ST 15 cm x 10 cm mesh was then placed. Description of Procedure Procedure as well as risks, benefits, and alternatives were discussed with the patient. Written consent was obtained and placed in chart prior to procedure. Patient was brought back to surgical suite. She was placed supine on operating table. Time-out was done to confirm patient and procedure. She was then intubated by the anesthesia department. A bump was placed under her left hip, and the bed was flexed slightly to extend the space between her costal margin and iliac crest. Her abdomen was prepped and draped in sterile fashion using chlorhexidine prep. A 5 millimeter incision was made in the left upper quadrant, and a 5 millimeter Optiview trocar was advanced through the abdominal layers under direct visualization. Once inside the abdominal cavity, carbon dioxide insufflation was used to create a pneumoperitoneum. Her abdomen was inspected. An 8 millimeter incision was made in the left lower quadrant, and an 8 millimeter robotic trocar was placed under direct visualization. Another 8 millimeter incision was made in the left lateral abdomen, and an 8 millimeter robotic trocar was placed under direct visualization. 0.5% bupivacaine with epinephrine was infiltrated around each port site. The 5 millimeter port was removed, and an 8 mm robotic trocar was placed under direct visualization. The robotic arms were brought up to the patient's bedside and secured to the ports. The camera and instruments were inserted, and I then moved over to the robotic console and took control of the camera and instruments. After careful thorough inspection of the abdominal cavity, I began my dissection at the hernia. A preperitoneal plane was attempted to be developed in the left upper quadrant, however the peritoneum was very thin and this space was not easy to develop, I therefore for chose to perform a robotic intraperitoneal onlay technique. The periumbilical preperitoneal fat and hernia sac was excised using scissors with electrocautery. I then measured the hernia size. The hernia measured 3 cm. The fascia was closed using an 1-Stratafix running suture in a vertical fashion. A Ventralight ST 15 cm x 10 cm mesh was then placed within the abdominal cavity. This was oriented vertically with the mesh centered on the hernia defect. The mesh was then secured at the center and 4 corners using 3-0 Vicryl simple interrupted sutures. The circumference of the mesh was then secured to the abdominal wall using 2-0 Stratafix running absorbable suture. The repair was inspected, and one final inspection was made around the abdominal cavity. The hernia sac was placed in Endo-Catch bag and removed through the left upper quadrant port site. The robotic instruments were then removed, and the robotic arms were disengaged from the trocars. The ports were then removed under direct visualization, the camera was removed, and the pneumoperitoneum was released. The skin of the incisions was then approximated using 4-0 Monocryl subcuticular suture. Exofin glue was then applied on top. The patient was then awakened from anesthesia, extubated, and transferred to recovery. Implants Ventralight ST 15 cm x 10 cm mesh Estimated Blood Loss 5 Pathology Yes (Hernia sac) Complications No immediate complications Condition Stable Disposition Same day [facility] Billing Surgery - Charge Forward: Surgery Billing
--- NOTE | 2024-11-16 12:18 | SUR.PHASEI ---
1215 - dr. brandon aware of the intermittent HR 38-42. no orders received
== END 2024-11-16 14:29 | disposition home or self-care (01) ==
PROVIDERS: PCP Family Medicine; Visit Provider Surgery
PROC: (CPT 49594; principal; 2024-11-16 09:30)
DX: K42.0 Umbilical hernia with obstruction, without gangrene (principal); M46.1 Sacroiliitis, not elsewhere classified; F32.A Depression, unspecified; E66.9 Obesity, unspecified; Z68.39 Body mass index [BMI] 39.0-39.9, adult; Z79.1 Long term (current) use of non-steroidal anti-inflammatories (NSAID); Z79.891 Long term (current) use of opiate analgesic; Z79.85 Long-term (current) use of injectable non-insulin antidiabetic drugs; Z98.890 Other specified postprocedural states; Z87.891 Personal history of nicotine dependence; Z80.1 Family history of malignant neoplasm of trachea, bronchus and lung; Z82.49 Family history of ischemic heart disease and other diseases of the circulatory system
CPT/HCPCS: 49594; S2900; 36415; 86850; 86900; 86901; 88302; J0690; C1781; J1100; J1596; J1885; J2250; J2270; J2405; J2704; J2710; J7120

== ENCOUNTER 2025-01-04 11:16 | Outpatient (CLI) | payer MEDICARE, SELFPAY ==
--- NOTE | ~2025-01-04 | CT_ITS ---
EXAMINATION:CT lung screening DATE: 01/04/2025 11:31 INDICATION: Personal history of nicotine dependence. TECHNIQUE: Computed tomography (CT) of the chest was performed without intravenous contrast. Automated exposure control and iterative reconstruction technique were employed. The dose-length product (DLP) was 274.36 mGy-cm. COMPARISON: Chest CT 11/11/2023, 11/05/2022 FINDINGS: There is mild emphysema. There is mild atelectasis bilaterally. There is a 3 mm nodule in left lower lobe. There is a 15 mm nodule in left lung upper lobe with interval worsening. There is a stable 5 mm nodule in lingula. There is a 3 mm nodule in right middle lobe. There are a few scattered nodules in the lungs measuring up to 3 mm. There is a stable 4 mm nodule in right upper lobe. There is a stable 5 mm nodule in left upper lobe. No pleural effusion. The heart size is normal. There are coronary artery calcifications. No pericardial effusion. There is severe cervical and thoracic spondylosis. IMPRESSION: 1. Lung RADS category 4B: Very suspicious. CT-guided biopsy of the 15 mm left upper lobe nodule is recommended. Reviewed, dictated and finalized at location E. IMPRESSION: 1. Lung RADS category 4B: Very suspicious. CT-guided biopsy of the 15 mm left u pper lobe nodule is recommended.
== END 2025-01-04 11:17 | disposition home or self-care (01) ==
LOC: MICIMG 11:16
PROVIDERS: PCP Family Medicine; Visit Provider Nurse Practitioner Family
DX: Z12.2 Encounter for screening for malignant neoplasm of respiratory organs (principal); R91.1 Solitary pulmonary nodule; Z87.891 Personal history of nicotine dependence
CPT/HCPCS: 71271